=== PATIENT | male | born 1945 | race Caucasian/White ===

== ENCOUNTER → 2020-07-09 08:14 | Outpatient (BNVA) | payer MEDICARE, SELFPAY | PROVIDERS: PCP Nurse Practitioner Family; Referring Provider Nurse Practitioner Family; Visit Provider Internal Medicine | DX: R06.02 Shortness of breath (principal); I35.9 Nonrheumatic aortic valve disorder, unspecified; J44.9 Chronic obstructive pulmonary disease, unspecified; Z87.891 Personal history of nicotine dependence | CPT/HCPCS: 99214 ==

== ENCOUNTER 2020-07-23 08:10 | Outpatient (REF) | payer MEDICARE, SELFPAY ==
[2020-07-23 11:57] LABS: Anion Gap 14 (12-20); Blood Urea Nitrogen 9 mg/dL (9-16); Calcium 8.8 mg/dL (8.4-10.2); Carbon Dioxide 27 mmol/L (22-29); Chloride 103 mmol/L (96-108); Cholesterol 175 mg/dL; Estimated Glomerular Filt Rate > 60; Glucose Fasting 90 mg/dL (60-99); HDL Cholesterol 76 mg/dL; LDL Cholesterol Calculated 83 mg/dl; Potassium 4.3 mmol/l (3.3-5.1); Sodium 140 mmol/L (135-145); Triglycerides 82 mg/dL
[2020-07-23 12:36] LABS: Prostate Specific Antigen Scr 9.17 ng/mL (<0.05-4.0); TSH reflex Free T4 1.38 mIU/mL (0.32-4.0)
== END 2020-07-23 08:11 | disposition home or self-care (01) ==
LOC: HO.HMGCLDS 08:10
PROVIDERS: PCP Nurse Practitioner Family; Visit Provider Nurse Practitioner Family
DX: R06.02 Shortness of breath (principal); E78.5 Hyperlipidemia, unspecified
CPT/HCPCS: 80048; 80061; 84153; 84443

== ENCOUNTER → 2020-09-15 13:29 | Outpatient (BNVA) | payer MEDICARE, SELFPAY | PROVIDERS: Visit Provider Urology | DX: R97.20 Elevated prostate specific antigen [PSA] (principal); N40.1 Benign prostatic hyperplasia with lower urinary tract symptoms; Z12.5 Encounter for screening for malignant neoplasm of prostate | CPT/HCPCS: 99202 ==

== ENCOUNTER 2020-10-14 11:22 | Outpatient (REF) | payer MEDICARE, SELFPAY ==
--- NOTE | 2020-10-14 11:24 | US_ITS ---
EXAMINATION: US PELVIS LIMITED (BLADDER) CLINICAL INFORMATION: Poor urinary stream. COMPARISON: None TECHNIQUE: Real-time imaging of the bladder. FINDINGS: BLADDER: The bladder wall is slightly thickened measuring 6 mm. No stone or mass is seen. There is a echogenic debris seen dependently in the bladder. Bilateral ureteral jets are demonstrated. Prevoid bladder volume is 316 mL. Postvoid bladder volume is 22 mL. The prostate gland is normal in size measuring 2.8 x 3.5 x 3.6 cm, volume 19 mL. US/US bladder IMPRESSION: Mild diffuse bladder wall thickening and echogenic debris seen in the bladder. Postvoid bladder residual is small measuring 22 mL. The prostate gland does not appear enlarged..
== END 2020-10-14 11:23 | disposition home or self-care (01) ==
LOC: HO.HMGCX 11:22
PROVIDERS: PCP Nurse Practitioner Family; Visit Provider Urology
DX: R39.12 Poor urinary stream (principal); R97.20 Elevated prostate specific antigen [PSA]
CPT/HCPCS: 76857

== ENCOUNTER → 2020-10-21 08:57 | Outpatient (BNVA) | payer MEDICARE, SELFPAY | PROVIDERS: Visit Provider Urology | DX: N40.1 Benign prostatic hyperplasia with lower urinary tract symptoms (principal); N13.8 Other obstructive and reflux uropathy; R97.20 Elevated prostate specific antigen [PSA] | CPT/HCPCS: Q3014 ==

== ENCOUNTER 2021-05-28 13:13 | Outpatient (REF) | payer MEDICARE, SELFPAY ==
[2021-05-28 15:11] LABS: PSA,Total (Free>4and<10) 7.24 ng/mL (0.00-4.00)
[2021-06-06 10:01] LABS: Free Prostate Spec Ag 0.3 ng/mL; Percent Free Prostate Spec Ag 5 % (calc) (>25); Prostate Specific Ag Total 6.3 ng/mL (< OR = 4.0)
== END 2021-05-28 13:14 | disposition home or self-care (01) ==
LOC: HO.HMGCLDS 13:13
PROVIDERS: PCP Nurse Practitioner Family; Visit Provider Urology
DX: Z12.5 Encounter for screening for malignant neoplasm of prostate (principal); N40.1 Benign prostatic hyperplasia with lower urinary tract symptoms; N13.8 Other obstructive and reflux uropathy
CPT/HCPCS: 36415; 84153; 84154

== ENCOUNTER → 2021-06-04 14:15 | Outpatient (BNVA) | payer MEDICARE, SELFPAY | PROVIDERS: Visit Provider Urology | DX: N40.1 Benign prostatic hyperplasia with lower urinary tract symptoms (principal); N13.8 Other obstructive and reflux uropathy; R97.20 Elevated prostate specific antigen [PSA] | CPT/HCPCS: Q3014 ==

== ENCOUNTER → 2021-06-30 09:38 | Outpatient (BNVA) | payer MEDICARE, SELFPAY | PROVIDERS: Referring Provider Nurse Practitioner Family; Visit Provider Internal Medicine | DX: J44.9 Chronic obstructive pulmonary disease, unspecified (principal); I35.9 Nonrheumatic aortic valve disorder, unspecified; R06.02 Shortness of breath; Z87.891 Personal history of nicotine dependence | CPT/HCPCS: 93005; 99212 ==

== ENCOUNTER 2021-11-30 14:24 | Outpatient (REF) | payer OTHER, SELFPAY ==
[2021-11-30 17:13] LABS: PSA,Total (Free>4and<10) 5.69 ng/mL (0.00-4.00)
== END 2021-11-30 14:25 | disposition home or self-care (01) ==
LOC: HO.HMGCLDS 14:24
PROVIDERS: Visit Provider Urology
DX: Z12.5 Encounter for screening for malignant neoplasm of prostate (principal); R97.20 Elevated prostate specific antigen [PSA]; N40.1 Benign prostatic hyperplasia with lower urinary tract symptoms; N13.8 Other obstructive and reflux uropathy
CPT/HCPCS: 36415; 84153; 84154

== ENCOUNTER → 2021-12-03 08:48 | Outpatient (BNVA) | payer MEDICARE, SELFPAY | PROVIDERS: Visit Provider Urology | DX: N40.1 Benign prostatic hyperplasia with lower urinary tract symptoms (principal); N13.8 Other obstructive and reflux uropathy; R97.20 Elevated prostate specific antigen [PSA] | CPT/HCPCS: Q3014 ==

== ENCOUNTER 2022-05-23 08:25 | Outpatient (REF) | payer OTHER, SELFPAY ==
[2022-05-23 11:24] LABS: MANUAL DIFF FLAG NO
[2022-05-23 11:27] LABS: Appearance Urine Clear; Color Urine Yellow; Glucose Urine UA Negative (Negative); Leukocyte Esterase Urine Negative (Negative); Nitrite Urine Negative (Negative); Specific Gravity - Urine 1.015 (1.005-1.025); Urine Blood Negative (Negative); Urine Ketones Negative (Negative); Urine Protein Negative (Neg-Trace)
[2022-05-23 11:40] LABS: Basophils Percent Auto 0.5 % (0-2); Eosinophils Absolute Auto 0.3 X10*3/uL (0.0-0.4); Eosinophils Percent Auto 4.4 % (0-4); Hematocrit 44.7 % (42.0-52.0); Hemoglobin 15.1 g/dl (14.0-18.0); Imm Gran Abs Auto 0.02 X10*3/uL (0.00-0.03); Imm Gran Pct Auto 0.3 % (0.0-0.4); Lymphocytes Absolute Auto 2.9 X10*3/uL (1.2-4.9); Lymphocytes Percent Auto 49.5 % (20-40); Mean Corpuscular HGB Conc 33.8 g/dl (31.0-36.0); Mean Corpuscular Volume 97.8 fL (80.0-98.0); Mean Platelet Volume 11.2 fL (9.4-12.4); Monocytes Absolute Auto 0.6 X10*3/uL (0.1-1.2); Monocytes Percent Auto 10.3 % (2-11); Neutrophils Absolute Auto 2.1 x10*3/uL (2.0-8.3); Platelet Count 162 X10*3/uL (160-400); Red Blood Count 4.57 X10*6/uL (4.60-5.80); Red Cell Distribution Width 12.6 % (11.0-16.0); White Blood Count 5.9 X10*3/uL (4.8-10.8)
[2022-05-23 12:06] LABS: Alanine Aminotransferase 19 U/L (0-40); Albumin Level 4.2 g/dL (3.5-5.0); Alkaline Phosphatase 58 U/L (39-117); Anion Gap 15 (12-20); Aspartate Amino Transferase 27 U/L (5-37); Bilirubin Total 1.3 mg/dL (0.0-1.0); Blood Urea Nitrogen 10 mg/dL (9-16); Calcium 9.2 mg/dL (8.4-10.2); Carbon Dioxide 28 mmol/L (22-29); Chloride 103 mmol/L (96-108); Cholesterol 172 mg/dL; Estimated Glomerular Filt Rate > 60; Glucose Fasting 108 mg/dL (60-99); HDL Cholesterol 78 mg/dL; LDL Cholesterol Calculated 84 mg/dl; Potassium 4.9 mmol/L (3.3-5.1); Sodium 141 mmol/L (135-145); Total Protein 6.9 g/dL (6.5-8.0); Triglycerides 54 mg/dL
[2022-05-23 12:22] LABS: PSA,Total (Free>4and<10) 8.62 ng/mL (0.00-4.00); Vitamin D 25-OH Total 17.1 ng/mL (>30)
[2022-05-23 12:39] LABS: PSA,Total (Free>4and<10) 7.98 ng/mL (0.00-4.00)
[2022-05-25 08:41] LABS: Free Prostate Spec Ag 0.6 ng/mL; Percent Free Prostate Spec Ag 7 % (calc) (>25); Prostate Specific Ag Total 8.1 ng/mL (< OR = 4.0)
== END 2022-05-23 08:26 | disposition home or self-care (01) ==
LOC: HO.HMGCLDS 08:25
PROVIDERS: Absent Provider Urology; PCP Internal Medicine; Visit Provider Internal Medicine
DX: Z12.5 Encounter for screening for malignant neoplasm of prostate (principal); E78.00 Pure hypercholesterolemia, unspecified; E55.9 Vitamin D deficiency, unspecified; N13.8 Other obstructive and reflux uropathy; N40.1 Benign prostatic hyperplasia with lower urinary tract symptoms; I10 Essential (primary) hypertension
CPT/HCPCS: 36415; 80053; 80061; 81003; 82306; 84153; 84154; 84443; 85025

== ENCOUNTER → 2022-06-30 09:01 | Outpatient (BNVA) | payer OTHER, SELFPAY | PROVIDERS: PCP Internal Medicine; Referring Provider Internal Medicine; Visit Provider Internal Medicine | DX: R06.02 Shortness of breath (principal); I35.9 Nonrheumatic aortic valve disorder, unspecified; R03.0 Elevated blood-pressure reading, without diagnosis of hypertension; J44.9 Chronic obstructive pulmonary disease, unspecified; Z87.891 Personal history of nicotine dependence | CPT/HCPCS: 93005 ==

== ENCOUNTER 2022-11-29 09:05 | Outpatient (REF) | payer OTHER, SELFPAY ==
[2022-11-29 12:34] LABS: PSA,Total (Free>4and<10) 4.49 ng/mL (0.00-4.00)
[2022-12-01 13:13] LABS: Free Prostate Spec Ag 0.3 ng/mL; Percent Free Prostate Spec Ag 6 % (calc) (>25); Prostate Specific Ag Total 4.8 ng/mL (< OR = 4.0)
== END 2022-11-29 09:06 | disposition home or self-care (01) ==
LOC: HO.HMGCLDS 09:05
PROVIDERS: PCP Internal Medicine; Visit Provider Urology
DX: Z12.5 Encounter for screening for malignant neoplasm of prostate (principal); N13.8 Other obstructive and reflux uropathy; N40.1 Benign prostatic hyperplasia with lower urinary tract symptoms
CPT/HCPCS: 36415; 84153; 84154

== ENCOUNTER → 2023-02-22 08:45 | Outpatient (BNVA) | payer OTHER, SELFPAY | PROVIDERS: PCP Internal Medicine; Visit Provider Urology | DX: N40.1 Benign prostatic hyperplasia with lower urinary tract symptoms (principal); N13.8 Other obstructive and reflux uropathy; R97.20 Elevated prostate specific antigen [PSA] | CPT/HCPCS: 51798 ==

== ENCOUNTER 2023-05-08 09:00 | Outpatient (AMB) | payer OTHER, SELFPAY ==
[2023-05-08 09:02] VITALS: BP 128/82; PULSE 54; O2SAT 96; BMI 24.3
--- NOTE | 2023-05-08 09:02 | A.OFFPC_ITS ---
Vital Signs 05/08/23 09:02 Height 5 ft 8 in Weight 160 lb BMI 24.3 BP 128/82 Blood Pressure Location Lt brachial Position Sitting Pulse 54 Pulse Source Pulse Oximeter Pulse Oximetry (%) 96 Oxygen Delivery Method Room Air Intake Visit Reasons: hyperlipidemia, elevated BP, vitamin D deficiency Butcher Or Smallgoods Maker Required: No Accompanied by: Self / Same As Patient Allergies No Known Allergies [No Known Allergies*] Allergy (Verified 05/08/23 09:11) Medication List - Last Reconciled 05/08/23 by Alan Osman MD atorvastatin 40 mg PO BEDTIME 90 days cholecalciferol (vitamin D3) 50 mcg PO DAILY 90 days finasteride 5 mg PO DAILY 90 days Tobacco use date assessed: 05/08/23 Fall risk assessment: No Falls in past year Last assessed Fall Risk: 05/08/23 Dental Screening Dental Screen Date: 05/08/23 Did you have a dental visit in the last 12 months?: No Did you have a dental problem in the last 6 months where you did not have access to dental care?: No Was dental information given to patient?: No HPI hyperlipidemia, elevated BP, vitamin D deficiency HPI Details Patient comes in today for his follow up visit States that he feels okay He denies any headaches or dizziness Denies any chest pains, no increased SOB No nausea/vomiting, no abdominal pain No change in bowel habits noted Was not able to get his follow up labs done prior to his visit today COUNT INCLUDES THE [facility] Medical History Aortic valve calcification (atherosclerosis) Carotid bruit Chronic obstructive pulmonary disease, unspecified Colonoscopy refused Dyslipidemia Heart murmur Hemochromatosis carrier History of smoking Mass in neck Shortness of breath on exertion Tobacco use disorder Vitamin D deficiency Surgical History Hx of tonsillectomy Mass in neck Family History Father History of emphysema Mother HTN (hypertension) Brother No problems noted. Brother No problems noted. Sister No problems noted. Sister No problems noted. Daughter No problems noted. Social History Housing: House Alcohol intake: current Alcohol intake frequency: 3 or more drinks per day Patient Tobacco Use Status: Former Tobacco user Quit Date: 2011 Years Smoked: 20 +/- e-Cigarette/Vaping Use: Never Used Second Hand Smoke Exposure: Yes Current occupational status: retired Cognitive needs: No Hearing needs: No Vision needs: Yes (reading glasses) Questionnaire PHQ-9 Over the last 2 weeks, how often have you been bothered by any of the following problems? 1. Little interest or pleasure in doing things: not at all 2. Feeling down, depressed, or hopeless: not at all 3. Trouble falling or staying asleep, or sleeping too much: not at all 4. Feeling tired or having little energy: not at all 5. Poor appetite or overeating: not at all 6. Feeling bad about yourself - or that you are a failure or have let yourself or your family down: not at all 7. Trouble concentrating on things, such as reading the newspaper or watching television: not at all 8. Moving or speaking so slowly that other people could have noticed. Or the opposite - being so fidgety or restless that you have been moving around a lot more than usual: not at all 9. Thoughts that you would be better off or of hurting yourself in some way: not at all Total score: 0 Depression Screening Interpretation: Negative [id number] - PHQ-9 Billing: Yes Source: Developed by Drs. Rogelio Salomon, Sarah Saba, Raghu Guevara and colleagues, with an educational john from [employer]. Thrive Questionnaire Date Thrive assessed: 05/08/23 I am a: Patient What is your living situation today?: I have a steady place to live Within the past 12 months, did the food you bought not last and you didn't have the money to get more?: Never true Within the past 12 months, did you worry whether your food would run out before you got money to buy more?: Never true Do you have trouble paying for medicines?: No Do you have trouble getting transportation to medical appointments?: No Do you have trouble paying your heating and electricity bill?: No Do you have trouble taking care of your child, family member or friend?: No Do you have trouble with day-to-day activities such as bathing, preparing meals, shopping, managing finances, etc.?: No Are you currently unemployed and looking for a job?: No Are you interested in more education?: No Please select the resources that you would like help with: None Currently or been in a relationship where the following occur: no concerns reported AUDIT C Alcohol Use Questionnaire (AUDIT-C) 1. How often do you have a drink containing alcohol?: Never 3. How often do you have six or more drinks on one occasion?: Never Total Score: 0 Score Reviewed/Action Taken: Yes LEELEE-7 AMB Questionnaire LEELEE-7 Date LEELEE - 7 assessed: 05/08/23 Feeling nervous, anxious, or on edge: 0 = Not at all Not being able to stop or control worryin = Not at all Worrying too much about different things: 0 = Not at all Trouble relaxin = Not at all Being so restless that it is hard to sit still: 0 = Not at all Becoming easily annoyed or irritable: 0 = Not at all Feeling afraid as if something awful might happen: 0 = Not at all Total LEELEE-7 score (0-4 normal; 5-9 mild; 10-14 moderate; 15-21 severe): 0 Source: Developed by Drs. Rogelio Salomon, Sarah Saba, Raghu Guevara and colleagues, with an educational john from [employer]. Review of Systems Const Denies chills, Denies fatigue, Denies fever(s) and Denies headache(s) ENT Denies dysphagia, Denies dizziness, Denies otalgia, Denies headache(s) and Denies sore throat Card Denies chest pain, Denies rapid heart rate, Denies palpitations and Reports dyspnea on exertion (occasionally, mostly mild) Resp Denies chest congestion, Denies cough, Reports dyspnea on exertion (occasionally, mostly mild) and Denies wheezing GI Denies abdominal pain, Denies constipation, Denies dysphagia, Denies heartburn, Denies diarrhea, Denies nausea and Denies vomiting Denies dysuria and Denies nocturia Neuro Denies dizziness and Denies headache(s) Endo Denies fatigue and Denies palpitations Aller/Immun Denies wheezing Physical exam (Primary Care) Vital Signs: Last Vital Signs Pulse 54 05/08/23 09:02 BP 128/82 05/08/23 09:02 Pulse Ox 96 05/08/23 09:02 Oxygen Delivery Method Room Air 05/08/23 09:02 BMI result Body Mass Index 24.3 Tobacco/Smoking Status: Tobacco use Status Tobacco use date assessed 05/08/23 05/08/23 09:06 Patient Tobacco Use Status Former Tobacco user 05/08/23 09:06 e-Cigarette/Vaping Use Never Used 05/08/23 09:06 PHQ-9: PHQ-9 Score PHQ-9: Total score 0 05/08/23 09:06 Depression Screening Interpretation: Negative Thrive Assessment: Date of Thrive Assessment Date Thrive assessed 05/08/23 05/08/23 09:06 Currently or been in a relationship where the following occur: no concerns reported Const General: no acute distress and alert HENMT Ears: TM's normal bilaterally and EAC's normal Throat: Yes posterior oropharynx normal and Yes tonsils normal (no TP congestion) Neck Neck: Yes no lymphadenopathy and Yes supple Resp Auscultation: clear to auscultation bilaterally, no rales and no wheezes Cardio Rate: regular rate Rhythm: regular rhythm Heart sounds: no murmurs GI Palpation (GI): Soft to palpation and nontender Auscultation: normal bowel sounds Skin General skin exam: no rashes or lesions noted Extrem General: Yes no clubbing, cyanosis or edema Assessment and Plan Assessment & Plan (1) Pure hypercholesterolemia: Code(s): E78.00 - Pure hypercholesterolemia, unspecified Plan: Was not able to get his follow up labs done - states that he will go and get them done SOLIS Patient is advised that we will check back with him IF any of his follow up labs come back with unexpected results Reinforced low cholesterol diet Continue Atorvastatin 40 mg QD (2) Elevated blood pressure reading: Code(s): R03.0 - Elevated blood-pressure reading, without diagnosis of hypertension Plan: Reinforced low sodium diet Patient's BP today is much better compared to that from his previous visit Have advised patient to continue monitoring his blood pressure regularly (3) Chronic obstructive pulmonary disease, unspecified: Code(s): J44.9 - Chronic obstructive pulmonary disease, unspecified Qualifiers: COPD type: unspecified COPD Qualified Code(s): J44.9 - Chronic obstructive pulmonary disease, unspecified Plan: Patient is an ex-smoker and chest x-rays done in the past have showed (+) emphysematous 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 Heck) as scheduled Plan Follow up in 6 months Coding Level of Care Code Est Pt Level 4 (89158) Diagnoses Pure hypercholesterolemia E78.00 Elevated blood pressure reading R03.0 Chronic obstructive pulmonary disease, unspecified J44.9 COPD type: unspecified COPD Vitamin D deficiency E55.9 BPH w urinary obs/LUTS N40.1; N13.8
== END 2023-05-08 09:23 | disposition home or self-care (01) ==
PROVIDERS: PCP Internal Medicine; Visit Provider Internal Medicine
DX: E78.00 Pure hypercholesterolemia, unspecified (principal); R03.0 Elevated blood-pressure reading, without diagnosis of hypertension; J44.9 Chronic obstructive pulmonary disease, unspecified; E55.9 Vitamin D deficiency, unspecified; N40.1 Benign prostatic hyperplasia with lower urinary tract symptoms; N13.8 Other obstructive and reflux uropathy
CPT/HCPCS: 99214

== ENCOUNTER 2023-05-09 09:31 | Outpatient (REF) | payer OTHER, SELFPAY ==
[2023-05-09 13:31] LABS: MANUAL DIFF FLAG NO
[2023-05-09 13:51] LABS: Appearance Urine Clear; Color Urine Yellow; Glucose Urine UA Negative (Negative); Leukocyte Esterase Urine Negative (Negative); Nitrite Urine Negative (Negative); Urine Blood Negative (Negative); Urine Ketones Negative (Negative); Urine Protein Negative (Neg-Trace)
[2023-05-09 13:57] LABS: Basophils Percent Auto 0.3 % (0-2); Eosinophils Absolute Auto 0.1 X10*3/uL (0.0-0.4); Eosinophils Percent Auto 1.7 % (0-4); Hematocrit 45.4 % (42.0-52.0); Hemoglobin 14.8 g/dl (14.0-18.0); Imm Gran Abs Auto 0.01 X10*3/uL (0.00-0.03); Imm Gran Pct Auto 0.2 % (0.0-0.4); Lymphocytes Absolute Auto 2.2 X10*3/uL (1.2-4.9); Lymphocytes Percent Auto 36.8 % (20-40); Mean Corpuscular HGB Conc 32.6 g/dl (31.0-36.0); Mean Corpuscular Hemoglobin 32.3 pg (27.0-33.0); Mean Corpuscular Volume 99.1 fL (80.0-98.0); Mean Platelet Volume 11.2 fL (9.4-12.4); Monocytes Absolute Auto 0.6 X10*3/uL (0.1-1.2); Monocytes Percent Auto 10.8 % (2-11); Neutrophils Percent Auto 50.2 % (45-73); Platelet Count 177 X10*3/uL (160-400); Red Blood Count 4.58 X10*6/uL (4.60-5.80); Red Cell Distribution Width 12.6 % (11.0-16.0); White Blood Count 5.9 X10*3/uL (4.8-10.8)
[2023-05-09 14:21] LABS: Alanine Aminotransferase 19 U/L (0-40); Albumin Level 4.1 g/dL (3.5-5.0); Alkaline Phosphatase 47 U/L (39-117); Anion Gap 10 (12-20); Aspartate Amino Transferase 24 U/L (5-37); Bilirubin Total 1.3 mg/dL (0.0-1.0); Blood Urea Nitrogen 10 mg/dL (9-16); Calcium 9.4 mg/dL (8.4-10.2); Carbon Dioxide 29 mmol/L (22-29); Chloride 103 mmol/L (96-108); Cholesterol 157 mg/dL; Estimated Glomerular Filt Rate > 60; Glucose Fasting 105 mg/dL (60-99); HDL Cholesterol 70 mg/dL; LDL Cholesterol Calculated 78 mg/dl; Potassium 4.3 mmol/L (3.3-5.1); Sodium 138 mmol/L (135-145); TSH reflex Free T4 1.25 uIU/mL (0.32-4.0); Total Protein 6.9 g/dL (6.5-8.0); Triglycerides 47 mg/dL; Vitamin D 25-OH Total 79.7 ng/mL (>30)
== END 2023-05-09 09:32 | disposition home or self-care (01) ==
LOC: HO.HMGCLDS 09:31
PROVIDERS: PCP Internal Medicine; Visit Provider Internal Medicine
DX: R30.0 Dysuria (principal); E55.9 Vitamin D deficiency, unspecified; E78.00 Pure hypercholesterolemia, unspecified; I10 Essential (primary) hypertension
CPT/HCPCS: 36415; 80053; 80061; 81003; 82306; 84443; 85025

== ENCOUNTER 2023-08-22 08:33 | Outpatient (REF) | payer OTHER, SELFPAY ==
[2023-08-22 11:57] LABS: PSA,Total (Free>4and<10) 5.11 ng/mL (0.00-4.00)
[2023-08-23 10:29] LABS: Free Prostate Spec Ag 0.3 ng/mL; Percent Free Prostate Spec Ag 7 % (calc) (>25); Prostate Specific Ag Total 4.6 ng/mL (< OR = 4.0)
== END 2023-08-22 08:34 | disposition home or self-care (01) ==
LOC: HO.HMGCLDS 08:33
PROVIDERS: PCP Internal Medicine; Visit Provider Urology
DX: Z12.5 Encounter for screening for malignant neoplasm of prostate (principal); R97.20 Elevated prostate specific antigen [PSA]
CPT/HCPCS: 36415; 84153; 84154

== ENCOUNTER 2023-08-24 09:07 | Outpatient (AMB) | payer OTHER, SELFPAY ==
--- NOTE | 2023-08-24 09:13 | A.OFFVIS_ITS ---
Intake Intake Visit Reasons: 6m/PSA(set) Intake Note: Patient is Present for Follow Up Urology Medication: Finasteride Antibiotic Allergies: None Blood Thinners: None PVR: 0 Allergies No Known Allergies [No Known Allergies*] Allergy (Verified 05/08/23 09:11) Medication List - Last Reconciled 08/24/23 by Ishan Heck MD atorvastatin 40 mg PO BEDTIME 90 days cholecalciferol (vitamin D3) 50 mcg PO DAILY 90 days finasteride 5 mg PO DAILY 90 days HPI HPI Comments History of Present Illness Details Víctor Jaramillo is a very pleasant male. He is a patient of Dr Marcus. He seen for the following urologic conditions - elevated PSA - Lower urinary tract symptoms Small prostate Low free% increases risk for prostate cancer - PCPT calculator 80% chance of prostate cancer JESSICA small no nodules Prior Recommend prostate biopsy Six month follow-up PSA Will try to obtain prostate MRI given risk PVR 0 Elevated PSA Taken finasteride He presents for - further evaluation of elevated PSA Current management is - finasteride Laboratory investigations include - - a total PSA evaluation - June 2018 13.0, June 2019 7.4, 07/14 9.2, 06/15 7.2, 11/16 5.7, 05/16 8.0 off finasteride, 12/15 4.8 6%, 08/17 4.6 7% Imaging investigations include - Individualized Prostate Cancer Risk Calculator - 10% risk. Discussed repeat PSA. - minimal symptoms Imaging 09/13 bladder ultrasound. PVR 22 cc, prostate 25 g Overall symptoms are mild Therapeutic plan will be -repeat PSA PFSH Medical History Aortic valve calcification (atherosclerosis) Carotid bruit Chronic obstructive pulmonary disease, unspecified Colonoscopy refused Dyslipidemia Heart murmur Hemochromatosis carrier History of smoking Mass in neck Shortness of breath on exertion Tobacco use disorder Vitamin D deficiency Surgical History Hx of tonsillectomy Mass in neck Family History Father History of emphysema Mother HTN (hypertension) Brother No problems noted. Brother No problems noted. Sister No problems noted. Sister No problems noted. Daughter No problems noted. Social History Housing: House Alcohol intake: current Alcohol intake frequency: 3 or more drinks per day Patient Tobacco Use Status: Former Tobacco user Quit Date: 2011 Years Smoked: 20 +/- e-Cigarette/Vaping Use: Never Used Second Hand Smoke Exposure: Yes Current occupational status: retired Cognitive needs: No Hearing needs: No Vision needs: Yes (reading glasses) Review of Systems Const Denies chills and Denies fever(s) Card Reports no additional complaints and Denies syncope Resp Denies cough GI Denies abdominal pain and Denies heartburn Reports as per HPI and Denies change in libido Neuro Denies syncope Psych Denies change in libido Endo Denies change in libido Physical Exam Const General: cooperative, healthy appearing, comfortable and no acute distress Orientation/consciousness: patient oriented x3 HEENT Face and sinus: Yes normal facial exam Mouth: moist mucous membranes Neck Neck: Yes normal visual inspection, Yes full ROM and Yes trachea midline Chest Chest palpation & inspection: normal inspection of the chest Resp Effort & Inspection: normal respiratory effort, able to speak in complete sentences and no respiratory distress GI Inspection: Yes normal to inspection Back/Spine/Pelvis Cervical Spine: normal cervical lordosis Thoracic/Lumbar Spine: thoracic and lumbar spine normal to inspection Skin General skin exam: no rashes or lesions noted Neuro General: patient oriented x3, gait normal, tone normal and moves all extremities Extrem General: Yes normal to inspection and Yes capillary refill normal Office Procedures Post Void Residual Post Residual Void Post Void Residual (PVR): 0 [id number] Void Residual by ultrasound Assessment & Plan Assessment & Plan (1) BPH w urinary obs/LUTS: Code(s): N40.1 - Benign prostatic hyperplasia with lower urinary tract symptoms; N13.8 - Other obstructive and reflux uropathy (2) Elevated PSA: Code(s): R97.20 - Elevated prostate specific antigen [PSA] Plan Six month follow-up prostate MRI and lab work Orders: Orders AMB Post Void Residual by ultrasound Today N13.8 - Other obstructive and reflux uropathy, N40.1 - Benign prostatic hyperplasia with lower urinary tract symptoms Prostate Specific Antigen 6 Months R97.20 - Elevated prostate specific antigen [PSA] Creatinine 6 Months R97.20 - Elevated prostate specific antigen [PSA] Blood Urea Nitrogen 6 Months R97.20 - Elevated prostate specific antigen [PSA] Prostate Specific Antigen 08/22/23 R97.20 - Elevated prostate specific antigen [PSA] MR pelvis wo/w con 6 Months R97.20 - Elevated prostate specific antigen [PSA] Medications: Refilled finasteride 5 mg PO DAILY 90 tabs 3RF 90 days N13.8 - Other obstructive and reflux uropathy, N40.1 - Benign prostatic hyperplasia with lower urinary tract symptoms Patient Instructions: Imaging studies, laboratory and physical exam results were discussed and reviewed in detail. No major barriers to patient understanding were identified. An opportunity to ask questions regarding the treatment plan was provided. All questions were answered. The patient expressed understanding and agreement with the above treatment plan. The patient is aware they should contact our office by phone for worsening of their current condition or the appearance of new urologic symptoms. Compliance is encouraged with any medications and followup testing that is ordered. It is a privilege to participate in the urologic care of your patient. If you have any questions or concerns regarding treatment for the above conditions, or other urologic issues, please do not hesitate to contact me. The office telephone contact is [phone]. This note is constructed using voice recognition software. While every effort has been made to ensure accuracy fractionation plant supervisor errors may have been included. Yours sincerely, Dr Ishan Heck MD, [facility] - Urology Providers of Expert, Compassionate Care for the Genitourinary System Coding Level of Care Code Est Pt Level 3 (37717) Diagnoses BPH w urinary obs/LUTS N40.1; N13.8 Elevated PSA R97.20 CPT Codes Post Residual Void - PVR CPT Code: [id number]-[id number] Void Residual by ultrasound ([id number])
== END 2023-08-24 09:41 | disposition home or self-care (01) ==
PROVIDERS: Visit Provider Urology
DX: N40.1 Benign prostatic hyperplasia with lower urinary tract symptoms (principal); N13.8 Other obstructive and reflux uropathy; R97.20 Elevated prostate specific antigen [PSA]
CPT/HCPCS: 99213

== ENCOUNTER → 2023-08-24 09:07 | Outpatient (BNVA) | payer OTHER, SELFPAY | PROVIDERS: Visit Provider Urology | DX: N40.1 Benign prostatic hyperplasia with lower urinary tract symptoms (principal); N13.8 Other obstructive and reflux uropathy; R97.20 Elevated prostate specific antigen [PSA] | CPT/HCPCS: 51798 ==

== ENCOUNTER 2023-11-01 08:45 | Outpatient (AMB) | payer OTHER, SELFPAY ==
[2023-11-01 08:47] VITALS: BP 138/80; PULSE 68; O2SAT 97; BMI 24.6
--- NOTE | 2023-11-01 08:47 | A.OFFPC_ITS ---
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 Accompanied by: Self / Same As Patient Allergies No Known Allergies [No Known Allergies*] Allergy (Verified 11/01/23 09:12) Medication List - Last Reconciled 11/01/23 by Alan Osman MD atorvastatin 40 mg PO BEDTIME 90 days cholecalciferol (vitamin D3) 50 mcg PO DAILY 90 days finasteride 5 mg PO DAILY 90 days Tobacco use date assessed: 11/01/23 Fall risk assessment: No Falls in past year Last assessed Fall Risk: 11/01/23 Dental Screening Dental Screen Date: 11/01/23 Did you have a dental visit in the last 12 months?: No Did you have a dental problem in the last 6 months where you did not have access to dental care?: No Was dental information given to patient?: No HPI hyperlipidemia, BPH HPI Details Patient comes in today for his follow up visit States that he feels okay He denies any headaches or dizziness Denies any chest pains, no increased SOB No nausea/vomiting, no abdominal pain No change in bowel habits noted Would like to know how he really did on his labs done back in April 2023 right after his last visit [facility] Medical History (Updated 11/01/23 @ 09:34 by Alan Osman MD) Heart murmur Vitamin D deficiency Dyslipidemia (atherosclerosis) Colonoscopy refused Tobacco use disorder Hemochromatosis carrier Mass in neck Carotid bruit History of smoking Aortic valve calcification Chronic obstructive pulmonary disease, unspecified Shortness of breath on exertion Surgical History Mass in neck Hx of tonsillectomy Family History Father History of emphysema Mother HTN (hypertension) Brother No problems noted. Brother No problems noted. Sister No problems noted. Sister No problems noted. Daughter No problems noted. Social History Housing: House Alcohol intake: current Alcohol intake frequency: 3 or more drinks per day Patient Tobacco Use Status: Former Tobacco user Quit Date: 2011 Years Smoked: 20 +/- e-Cigarette/Vaping Use: Never Used Second Hand Smoke Exposure: Yes service: No Current occupational status: retired Cognitive needs: No Hearing needs: No Vision needs: Yes (reading glasses) Questionnaire PHQ-9 Over the last 2 weeks, how often have you been bothered by any of the following problems? 1. Little interest or pleasure in doing things: not at all 2. Feeling down, depressed, or hopeless: not at all 3. Trouble falling or staying asleep, or sleeping too much: not at all 4. Feeling tired or having little energy: not at all 5. Poor appetite or overeating: not at all 6. Feeling bad about yourself - or that you are a failure or have let yourself or your family down: not at all 7. Trouble concentrating on things, such as reading the newspaper or watching television: not at all 8. Moving or speaking so slowly that other people could have noticed. Or the opposite - being so fidgety or restless that you have been moving around a lot more than usual: not at all 9. Thoughts that you would be better off or of hurting yourself in some way: not at all Total score: 0 Depression Screening Interpretation: Negative Depression Screening Done: Yes 45342 - PHQ-9 Billing: Yes Source: Developed by Drs. Rogelio Salomon, Sarah Saba, Raghu Guevara and colleagues, with an educational john from [employer]. Thrive Questionnaire Date Thrive assessed: 11/01/23 I am a: Patient What is your living situation today?: I have a steady place to live Within the past 12 months, did the food you bought not last and you didn't have the money to get more?: Never true Within the past 12 months, did you worry whether your food would run out before you got money to buy more?: Never true Do you have trouble paying for medicines?: No Do you have trouble getting transportation to medical appointments?: No Do you have trouble paying your heating and electricity bill?: No Do you have trouble taking care of your child, family member or friend?: No Do you have trouble with day-to-day activities such as bathing, preparing meals, shopping, managing finances, etc.?: No Are you currently unemployed and looking for a job?: No Are you interested in more education?: No Please select the resources that you would like help with: None Currently or been in a relationship where the following occur: no concerns reported THRIVE Score: 0 AUDIT C Alcohol Use Questionnaire (AUDIT-C) 1. How often do you have a drink containing alcohol?: Never 3. How often do you have six or more drinks on one occasion?: Never Total Score: 0 Score Reviewed/Action Taken: Yes LEELEE-7 AMB Questionnaire LEELEE-7 Date LEELEE - 7 assessed: 11/01/23 Feeling nervous, anxious, or on edge: 0 = Not at all Not being able to stop or control worryin = Not at all Worrying too much about different things: 0 = Not at all Trouble relaxin = Not at all Being so restless that it is hard to sit still: 0 = Not at all Becoming easily annoyed or irritable: 0 = Not at all Feeling afraid as if something awful might happen: 0 = Not at all Total LEELEE-7 score (0-4 normal; 5-9 mild; 10-14 moderate; 15-21 severe): 0 Source: Developed by Drs. Rogelio Salomon, Sarah Saba, Raghu Guevara and colleagues, with an educational john from [employer]. Review of Systems Const Denies chills, Denies fatigue, Denies fever(s) and Denies headache(s) ENT Denies dysphagia, Denies dizziness, Denies otalgia, Denies headache(s), Denies neck pain, Denies odynophagia and Denies sore throat Card Denies chest pain, Denies palpitations and Denies dyspnea Resp Denies cough and Denies dyspnea GI Denies abdominal pain, Denies constipation, Denies dysphagia, Denies heartburn, Denies diarrhea, Denies nausea, Denies odynophagia and Denies vomiting Denies dysuria, Denies nocturia and Denies urinary frequency Musc Denies back pain and Denies neck pain Skin/Breast Denies rash Neuro Denies dizziness and Denies headache(s) Endo Denies fatigue and Denies palpitations Physical exam (Primary Care) Vital Signs: Last Vital Signs Pulse 68 11/01/23 08:47 BP 138/80 11/01/23 08:47 Pulse Ox 97 11/01/23 08:47 Oxygen Delivery Method Room Air 11/01/23 08:47 BMI result Body Mass Index 24.6 Tobacco/Smoking Status: Tobacco use Status Tobacco use date assessed 11/01/23 11/01/23 08:53 Patient Tobacco Use Status Former Tobacco user 11/01/23 08:53 e-Cigarette/Vaping Use Never Used 11/01/23 08:53 PHQ-9: PHQ-9 Score PHQ-9: Total score 0 11/01/23 09:15 Depression Screening Interpretation: Negative Thrive Assessment: Date of Thrive Assessment Date Thrive assessed 11/01/23 11/01/23 08:53 Currently or been in a relationship where the following occur: no concerns reported Const General: no acute distress and alert HENMT Ears: TM's normal bilaterally and EAC's normal Throat: Yes posterior oropharynx normal and Yes tonsils normal (no TP congestion) Neck Neck: Yes no lymphadenopathy and Yes supple Resp Auscultation: clear to auscultation bilaterally, no rales and no wheezes Cardio Rate: regular rate Rhythm: regular rhythm Heart sounds: Murmur heart sound present systolic soft, II/, at the apex and at the left sternal border GI Palpation (GI): Soft to palpation and nontender Auscultation: normal bowel sounds General: Yes no CVA tenderness Back/Spine/Pelvis Back: no CVA tenderness Skin Rashes: no rashes Extrem General: Yes no clubbing, cyanosis or edema Results Reviewed Results Reviewed: Laboratory Tests 05/09/23 05/09/23 05/09/23 09:56 09:56 09:56 WBC 5.9 Hgb 14.8 Hct 45.4 Plt Count 177 Sodium 138 Potassium 4.3 Creatinine 0.85 Estimated GFR > 60 Fasting Glucose 105 H Calcium 9.4 AST 24 ALT 19 Triglycerides 47 Cholesterol 157 LDL Cholesterol, Calc 78 HDL Cholesterol 70 25-OH Vitamin D Total 79.7 TSH 1.25 Ur Specific Ingram Urine Protein Urine Glucose (UA) Urine Blood 05/09/23 05/09/23 10:00 10:00 WBC Hgb Hct Plt Count Sodium Potassium Creatinine Estimated GFR Fasting Glucose Calcium AST ALT Triglycerides Cholesterol LDL Cholesterol, Calc HDL Cholesterol 25-OH Vitamin D Total TSH Ur Specific Ingram 1.020 Urine Protein Negative Urine Glucose (UA) Negative Urine Blood Negative Assessment and Plan Assessment & Plan (1) Pure hypercholesterolemia: Code(s): E78.00 - Pure hypercholesterolemia, unspecified Plan: Results of his labs done back in April 2023 reviewed and discussed with patient Reinforced low cholesterol diet Continue Atorvastatin 40 mg QD Will have patient recheck his labs and fasting lipids in 6 months for follow up (2) Elevated blood pressure reading: Code(s): R03.0 - Elevated blood-pressure reading, without diagnosis of hypertension Plan: Reinforced low sodium diet Patient's BP today is acceptable - discussed again that systolic BP should at least be at around 130 to 140 mm or less at his age Have reminded patient to continue monitoring his blood pressure regularly (3) Chronic obstructive pulmonary disease, unspecified: Code(s): J44.9 - Chronic obstructive pulmonary disease, unspecified Qualifiers: COPD type: unspecified COPD Qualified Code(s): J44.9 - Chronic obstructive pulmonary disease, unspecified Plan: Patient is an ex-smoker and chest x-rays done in the past have showed (+) emphysematous changes in the lungs Patient reports that he is currently still asymptomatic and has no issues with his breathing other than mild ROMERO at times Has been seen and evaluated by cardiology a couple of years ago and was advised that he has no significant cardiac issues or concerns (4) Cardiac murmur: Code(s): R01.1 - Cardiac murmur, unspecified Plan: Echocardiogram done in 2014 revealed (+) trace MR and trace TR, which are likely the source of his current grade 2/6 soft systolic murmur heard on auscultation His EF and overall LV ssytolic function were normal at the time As patient is currently active and states that he's had no acute issues with SOB and is fairly independent with all daily activities, no further work ups are indicated at this time (5) Vitamin D deficiency: Code(s): E55.9 - Vitamin D deficiency, unspecified Plan: Continue Vitamin D3 2000 units QD (6) BPH w urinary obs/LUTS: Code(s): N40.1 - Benign prostatic hyperplasia with lower urinary tract symptoms; N13.8 - Other obstructive and reflux uropathy Plan: He is currently asymptomatic Continue Finasteride 5 mg QD Follow up with urology (Dr. Heck) as scheduled Plan Follow up in 6 months Orders: Orders Lipid Panel 6 Months E78.00 - Pure hypercholesterolemia, unspecified TSH reflex Free T4 6 Months E78.00 - Pure hypercholesterolemia, unspecified Comprehensive [place]. Panel Fast 6 Months E78.00 - Pure hypercholesterolemia, unspecified Complete Blood Count Auto Diff 6 Months D64.9 - Anemia, unspecified UA CC w/rflx Micro + Cult 6 Months R30.0 - Dysuria Vitamin D 25-OH Total 6 Months E55.9 - Vitamin D deficiency, unspecified Coding Level of Care Code Est Pt Level 4 (12167) Diagnoses Pure hypercholesterolemia E78.00 Elevated blood pressure reading R03.0 Chronic obstructive pulmonary disease, unspecified COPD type J44.9 COPD type: unspecified COPD Cardiac murmur R01.1 Vitamin D deficiency E55.9 BPH w urinary obs/LUTS N40.1; N13.8
== END 2023-11-01 09:27 | disposition home or self-care (01) ==
PROVIDERS: PCP Internal Medicine; Visit Provider Internal Medicine
DX: E78.00 Pure hypercholesterolemia, unspecified (principal); R03.0 Elevated blood-pressure reading, without diagnosis of hypertension; J44.9 Chronic obstructive pulmonary disease, unspecified; R01.1 Cardiac murmur, unspecified; E55.9 Vitamin D deficiency, unspecified; N40.1 Benign prostatic hyperplasia with lower urinary tract symptoms; N13.8 Other obstructive and reflux uropathy
CPT/HCPCS: 99214

== ENCOUNTER 2024-02-13 13:16 | Outpatient (REF) | payer OTHER, SELFPAY ==
[2024-02-13 17:35] LABS: Prostate Specific Antigen 5.61 ng/mL (<0.05-4.0)
== END 2024-02-13 13:17 | disposition home or self-care (01) ==
LOC: HO.HMGCLDS 13:16
PROVIDERS: PCP Internal Medicine; Visit Provider Urology
DX: R97.20 Elevated prostate specific antigen [PSA] (principal); Z12.5 Encounter for screening for malignant neoplasm of prostate
CPT/HCPCS: 36415; 84153

== ENCOUNTER 2024-02-20 08:43 | Outpatient (AMB) | payer OTHER, SELFPAY ==
--- NOTE | 2024-02-20 08:47 | A.OFFVIS_ITS ---
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 He is a patient of Dr Marcus. He seen for the following urologic conditions - elevated PSA - Lower urinary tract symptoms Prostate MRI - 20 g prostate - peripheral zone anterior 1.3 cm PI-RADS 4, peripheral zone right posterior bladder 0.7 cm PI-RADS 4 Recommend targeted prostate biopsy Elevated PSA He presents for - further evaluation of elevated PSA Current management is - finasteride Laboratory investigations include - - a total PSA evaluation - June 2018 13.0, June 2019 7.4, 07/14 9.2, 06/15 7.2, 11/16 5.7, 05/16 8.0 off finasteride, 12/15 4.8 6%, 08/17 4.6 7% Imaging investigations include - Individualized Prostate Cancer Risk Calculator - 10% risk. Discussed repeat PSA. - minimal symptoms Imaging 09/13 bladder ultrasound. PVR 22 cc, prostate 25 g Overall symptoms are mild Therapeutic plan will be -repeat PSA [facility] Medical History (Updated 11/01/23 @ 09:34 by Alan Osman MD) Heart murmur Vitamin D deficiency Dyslipidemia (atherosclerosis) Colonoscopy refused Tobacco use disorder Hemochromatosis carrier Mass in neck Carotid bruit History of smoking Aortic valve calcification Chronic obstructive pulmonary disease, unspecified Shortness of breath on exertion Surgical History Mass in neck Hx of tonsillectomy Family History Father History of emphysema Mother HTN (hypertension) Brother No problems noted. Brother No problems noted. Sister No problems noted. Sister No problems noted. Daughter No problems noted. Social History Housing: House Alcohol intake: current Alcohol intake frequency: 3 or more drinks per day Patient Tobacco Use Status: Former Tobacco user Quit Date: 2011 Years Smoked: 20 +/- e-Cigarette/Vaping Use: Never Used Second Hand Smoke Exposure: Yes service: No Current occupational status: retired Cognitive needs: No Hearing needs: No Vision needs: Yes (reading glasses) Review of Systems Const Denies chills and Denies fever(s) Card Reports no additional complaints and Denies syncope Resp Denies cough GI Denies abdominal pain and Denies heartburn Reports as per HPI and Denies change in libido Neuro Denies syncope Psych Denies change in libido Endo Denies change in libido Physical Exam Const General: cooperative, healthy appearing, comfortable and no acute distress Orientation/consciousness: patient oriented x3 HEENT Face and sinus: Yes normal facial exam Mouth: moist mucous membranes Neck Neck: Yes normal visual inspection, Yes full ROM and Yes trachea midline Chest Chest palpation & inspection: normal inspection of the chest Resp Effort & Inspection: normal respiratory effort, able to speak in complete sentences and no respiratory distress GI Inspection: Yes normal to inspection Back/Spine/Pelvis Cervical Spine: normal cervical lordosis Thoracic/Lumbar Spine: thoracic and lumbar spine normal to inspection Skin General skin exam: no rashes or lesions noted Neuro General: patient oriented x3, gait normal, tone normal and moves all extremities Extrem General: Yes normal to inspection and Yes capillary refill normal Assessment & Plan Assessment & Plan (1) BPH w urinary obs/LUTS: Code(s): N40.1 - Benign prostatic hyperplasia with lower urinary tract symptoms; N13.8 - Other obstructive and reflux uropathy Category: Medical (2) Elevated PSA: Code(s): R97.20 - Elevated prostate specific antigen [PSA] Category: Medical Plan Risks and benefits regarding trans rectal ultrasound with prostate biopsy were discussed. Options of continued surveillance, no treatment and biopsy were offered. The risks include but are not limited to, urinary tract infection, sepsis, difficulty urinating, bleeding into the rectum or bladder that requires intervention and transfusion,and failure to diagnose prostate cancer. The patient understands the options and the risks involved. They wish to proceed. Printed information was provided to ensure he remains off anticoagulation for the appropriate length of time. He may require cardiology or PCP clearance. An antibiotic will be administered prior to, and following the procedure Targeted prostate biopsy Patient Instructions: Imaging studies, laboratory and physical exam results were discussed and reviewed in detail. No major barriers to patient understanding were identified. An opportunity to ask questions regarding the treatment plan was provided. All questions were answered. The patient expressed understanding and agreement with the above treatment plan. The patient is aware they should contact our office by phone for worsening of their current condition or the appearance of new urologic symptoms. Compliance is encouraged with any medications and followup testing that is ordered. It is a privilege to participate in the urologic care of your patient. If you have any questions or concerns regarding treatment for the above conditions, or other urologic issues, please do not hesitate to contact me. The office telephone contact is [phone]. This note is constructed using voice recognition software. While every effort has been made to ensure accuracy metal reed tuner errors may have been included. Yours sincerely, Dr Ishan Heck MD, [facility] - Urology Providers of Expert, Compassionate Care for the Genitourinary System Coding Level of Care Code Est Pt Level 4 (83897) Diagnoses BPH w urinary obs/LUTS N40.1; N13.8 Elevated PSA R97.20
== END 2024-02-20 09:07 | disposition home or self-care (01) ==
PROVIDERS: PCP Internal Medicine; Visit Provider Urology
DX: N40.1 Benign prostatic hyperplasia with lower urinary tract symptoms (principal); N13.8 Other obstructive and reflux uropathy; R97.20 Elevated prostate specific antigen [PSA]
CPT/HCPCS: 99214

== ENCOUNTER → 2024-02-20 08:43 | Outpatient (BNVA) | payer OTHER, SELFPAY | PROVIDERS: PCP Internal Medicine; Visit Provider Urology ==

== ENCOUNTER 2024-04-15 06:09 | Day surgery (SDC) | payer MEDICARE, SELFPAY ==
[2024-04-11 12:27] VITALS: BMI 24.6
[2024-04-15 06:11] VITALS: BP 178/82; PULSE 68; RESP 20; TEMP 36.6; O2SAT 94
[2024-04-15] MEDS: Lactated Ringers 1,000 ML 50 ML IVCONT (06:30)
--- NOTE | 2024-04-15 07:15 | HO.ANESPROP2 ---
[facility] Active Problems Active Problems: All Active Problems Cardiac murmur (Acute) Vitamin D deficiency (Acute) Elevated blood pressure reading (Acute) Pure hypercholesterolemia (Acute) Allergic dermatitis (Acute) BPH w urinary obs/LUTS (Acute) Elevated PSA (Acute) Dyslipidemia (Acute) Screening PSA (prostate specific antigen) (Acute) History of smoking (Acute) Aortic valve calcification (Acute) Chronic obstructive pulmonary disease, unspecified (Acute) Shortness of breath on exertion (Acute) Past Medical History Medical History (Updated 11/01/23 @ 09:34 by Alan Osman MD) Heart murmur Vitamin D deficiency Dyslipidemia (atherosclerosis) Colonoscopy refused Tobacco use disorder Hemochromatosis carrier Mass in neck Carotid bruit History of smoking Aortic valve calcification Chronic obstructive pulmonary disease, unspecified Shortness of breath on exertion Family History Family History Father History of emphysema Mother HTN (hypertension) Brother No problems noted. Brother No problems noted. Sister No problems noted. Sister No problems noted. Daughter No problems noted. Family history of problems with anesthesia: No Surgical History Surgical History Mass in neck Hx of tonsillectomy History of Problems with Anesthesia: No Social History Social History Housing: House Alcohol intake: current Alcohol intake frequency: does not drink Patient Tobacco Use Status: Former Tobacco user Years Smoked: 20 +/- e-Cigarette/Vaping Use: Never Used Second Hand Smoke Exposure: Yes Are you DNR?: No Advance Directives: No Advance Directives Information Provided: Yes service: No Current occupational status: retired Cognitive needs: No Hearing needs: No Vision needs: Yes (reading glasses) Meds Allergies Allergy/AdvReac Type Severity Reaction Status Date / Time No Known Allergies Allergy Verified 02/20/24 08:47 [No Known Allergies*] Active Medications: Current Medications Lactated Ringer's (Lr) 1,000 mls @ 50 mls/hr IVCONT .Q20H JULIANNE Last Admin: 04/15/24 06:30 Dose: 50 mls/hr Exam Height,Weight and Vital Signs: Height 5 ft 8 in Weight 73.482 kg Last Vital Signs Temp 98 F 04/15/24 06:11 Pulse 68 04/15/24 06:11 Resp 20 04/15/24 06:11 BP 178/82 H 04/15/24 06:11 Pulse Ox 94 04/15/24 06:11 O2 Del Method Room Air 04/15/24 06:11 Airway Mallampati Class: III TM Dist: >3cm Neck ROM: Full Denture: Upper Assessment and Plan Assessment Anesthesia Assessment: Anesthesia Plan Discussed and Chart Reviewed Final Anesthetic Review Family History of Problems with Anesthesia: No History of Problems with Anesthesia: No NPO: Yes ASA Class: III Final Preanesthetic Review: No Changes in Pt Med Stat, Meds/Allgs Chart Reviewed, Consent Obtained/Reviewed and Anes Risks/Benef Reviewed Patient Risk: Intermediate Procedure Risk: Low Anesthetic Plan Anesthetic Plan: TIVA Disposition: Standard PACU
--- NOTE | 2024-04-15 07:38 | MHC.SHP ---
Pre-Procedural Eval Section A - 24 Hr Update-Section A only Date of Service: 04/15/24 The patient is an INPATIENT: No Changes since office visit: No Cold of Flu in the past 2 weeks, No New Medical Problems, No Changes in Medication and No Patient answered all questions The patient has been examined within 24 hours of the surgical procedure. The History & Physical has been completed within 30 days and I have reviewed it.: Yes Section B - Complete if H&P > 30 days Chief Complaint: Elevated prostate specific antigen [PSA] Details of Present Illness: Prostate MRI - 20 g prostate - peripheral zone anterior 1.3 cm PI-RADS 4, peripheral zone right posterior bladder 0.7 cm PI-RADS 4 Relevant Social History: None Present Medications: see Short Stay Collaborative assessment Medical History: No relevant PMH History of Previous Operations: No relevant previous surgery Allergies: Allergies Allergy/AdvReac Type Severity Reaction Status Date / Time No Known Allergies Allergy Verified 02/20/24 08:47 [No Known Allergies*] Review of Systems Sugical H&P ROS: Negative: Constitution, Cardiovascular, Respiratory, Neurological, Psychiatric, Hem-Onc, Allergic/Immunologic, Gastrointestinal, Genitourinary, Musculoskeletal, Integumentary, Endocrine and Eyes/Ears/Nose/Throat Exam Surgical H&P Exam: Normal: HEENT, Normal: Heart, Normal: Lungs, Normal: Extremities, Normal: Abdomen, Normal: Skin and Normal: Neurological Plan Diagnosis/Plan: Unchanged (US fusion prostate biopsy) I have reviewed the history and physical and performed a pertinent physical examination on my patient. No changes have occurred unless specified. Time Spent With Patient Time: Total time managing care of this patient today ____ minutes.
[2024-04-15 08:43] VITALS: BP 170/65; PULSE 54; RESP 17; TEMP 36.4; O2SAT 100
[2024-04-15 08:58] VITALS: BP 168/69; PULSE 58; RESP 17; TEMP 36.4; O2SAT 94
--- NOTE | 2024-04-15 08:59 | P.OP_ITS ---
Operative Note Operative Note Date of Service: 04/15/24 Narrative: Preoperative diagnosis: Elevated PSA Postoperative diagnosis: Elevated PSA 5.67 Procedure: 1. transrectal ultrasound-guided pudendal nerve block 2. MRI-US fusion image registration performed 3. transperineal ultrasound-guided prostate biopsy 14 core including targets Surgeon: Dr. Ishan Heck Anesthetic: Sedation plus local Indications for procedure: Elevated PSA Procedure: After informed consent was verified, the patient was brought into the procedure area. Patient identity confirmed. Perioperative antibiotics confirmed. Safety pause time out performed. Anesthesia performed per protocol. Scrotum taped out of operative area. Iodine prep used. Perineal injection of local anesthetic. Digital guided prostate pudendal nerve block performed with 10 cc of 1% lidocaine. 5cc each side. Combination 10cc iodine with 50cc gel was mixed and placed in the rectum. Ultrasound probe was placed per rectum. Ultrasound probe stabilized on a prostate stepper with attached grid. [employer] software and hardware platform used for US image acquisition, US 3D model creation and MRI-US fusion image overlay. Prostate MRI - 20 g prostate - peripheral zone anterior 1.3 cm PI-RADS 4, peripheral zone right posterior bladder 0.7 cm PI-RADS 4 Ultrasound placement was made with external grid calibration for height and prostate diameter in both the transverse and longitudinal planes. Grid A-C covering right prostate and c-F covering left prostate. Numbers 1.0-2.5 covering posterior prostate and 2.5-4.0 covering anterior prostate. Once grid calibration was confirmed prostate ultrasound data acquisition was performed in the transverse fashion. The US images were registered to create model boundaries. A three dimensional ultrasound model was created using [employer] software. The model was reviewed against acquired US images. The planned needle targeting, based on prior acquisition of MRI imaging, was overlaid on the ultrasound images and targets confirmed through ultrasound review. Adjustments were then made between real time and projected model targeting locations. Based on pre-planning evaluation 14 targets had been identified. These included 4 targeted identified lesion/s. He tolerated the procedure well. Was transferred to stable condition in the PACU. Printed instructions regarding antibiotic use and common side effects such as low-grade temperature, potential infection and bleeding were given Pathology: 14 core prostate biopsy CPT 78093 Modifier 22 for complexity of procedure execution (Perineal prostate biopsy) CPT 70049 US/MRI target fusion and manipulation in realtime
== END 2024-04-15 09:37 | disposition home or self-care (01) ==
PROVIDERS: PCP Internal Medicine; Visit Provider Urology
PROC: (CPT 55700; principal; 2024-04-15 07:30)
DX: R97.20 Elevated prostate specific antigen [PSA] (principal); N40.1 Benign prostatic hyperplasia with lower urinary tract symptoms; N13.8 Other obstructive and reflux uropathy; E78.5 Hyperlipidemia, unspecified; E55.9 Vitamin D deficiency, unspecified; I35.8 Other nonrheumatic aortic valve disorders; R01.1 Cardiac murmur, unspecified; J44.9 Chronic obstructive pulmonary disease, unspecified; Z14.8 Genetic carrier of other disease; Z87.891 Personal history of nicotine dependence
CPT/HCPCS: 55706; 88305; 88344; J1100; J1956; J2250; J2405; J2704; J2795; J3010

== ENCOUNTER → 2024-04-15 06:09 | Outpatient (BNV) | payer MEDICARE, SELFPAY | PROVIDERS: PCP Internal Medicine; Visit Provider Urology | DX: R97.20 Elevated prostate specific antigen [PSA] (principal) | CPT/HCPCS: 55706 ==

== ENCOUNTER 2024-04-26 07:29 | Outpatient (REF) | payer MEDICARE, SELFPAY ==
[2024-04-26 10:01] LABS: MANUAL DIFF FLAG NO
[2024-04-26 10:18] LABS: Appearance Urine Clear; Basophils Percent Auto 0.3 % (0-2); Color Urine Yellow; Eosinophils Absolute Auto 0.2 X10*3/uL (0.0-0.4); Eosinophils Percent Auto 3.6 % (0-4); Glucose Urine UA Negative (Negative); Hematocrit 42.9 % (42.0-52.0); Hemoglobin 14.4 g/dl (14.0-18.0); Imm Gran Abs Auto 0.02 X10*3/uL (0.00-0.03); Imm Gran Pct Auto 0.3 % (0.0-0.4); Leukocyte Esterase Urine Trace (Negative); Lymphocytes Absolute Auto 2.7 X10*3/uL (1.2-4.9); Lymphocytes Percent Auto 44.9 % (20-40); Mean Corpuscular HGB Conc 33.6 g/dl (31.0-36.0); Mean Corpuscular Hemoglobin 32.7 pg (27.0-33.0); Mean Corpuscular Volume 97.3 fL (80.0-98.0); Mean Platelet Volume 10.6 fL (9.4-12.4); Monocytes Absolute Auto 0.5 X10*3/uL (0.1-1.2); Neutrophils Absolute Auto 2.5 x10*3/uL (2.0-8.3); Neutrophils Percent Auto 41.9 % (45-73); Nitrite Urine Negative (Negative); Platelet Count 185 X10*3/uL (160-400); Red Blood Count 4.41 X10*6/uL (4.60-5.80); UMIC TRIGGER UACC YES; Urine Blood Small (1+) (Negative); Urine Ketones Negative (Negative); Urine Protein Negative (Neg-Trace)
[2024-04-26 10:36] LABS: Bacteria Urine None Seen (None Seen); Hyaline Casts Urine 0-2 /LPF (0-2); RBC Urine 0-2 /HPF (0-2); Squamous Epithelial Cell Urine 0-2 /HPF (0-2); WBC Urine 0-5 /HPF (0-5)
[2024-04-26 10:43] LABS: Alanine Aminotransferase 18 U/L (0-40); Albumin Level 4.2 g/dL (3.5-5.0); Alkaline Phosphatase 53 U/L (39-117); Anion Gap 10 (12-20); Aspartate Amino Transferase 23 U/L (5-37); Blood Urea Nitrogen 12 mg/dL (9-16); Calcium 9.1 mg/dL (8.4-10.2); Carbon Dioxide 30 mmol/L (22-29); Chloride 103 mmol/L (96-108); Cholesterol 161 mg/dL (<200); Estimated Glomerular Filt Rate > 60; Glucose Fasting 110 mg/dL (60-99); HDL Cholesterol 68 mg/dL (>40); LDL Cholesterol Calculated 84 mg/dL (<100); Potassium 4.6 mmol/L (3.3-5.1); Sodium 138 mmol/L (135-145); Total Protein 6.9 g/dL (6.5-8.0); Triglycerides 48 mg/dL (<150)
[2024-04-26 10:59] LABS: TSH reflex Free T4 1.66 uIU/mL (0.32-4.0); Vitamin D 25-OH Total 70.3 ng/mL (>30)
== END 2024-04-26 07:30 | disposition home or self-care (01) ==
LOC: HO.HMGCLDS 07:29
PROVIDERS: PCP Internal Medicine; Visit Provider Internal Medicine
DX: D64.9 Anemia, unspecified (principal); E78.00 Pure hypercholesterolemia, unspecified; E55.9 Vitamin D deficiency, unspecified; R30.0 Dysuria
CPT/HCPCS: 36415; 80053; 80061; 81001; 82306; 84443; 85025

== ENCOUNTER 2024-04-26 14:10 | Outpatient (AMB) | payer MEDICARE, SELFPAY ==
--- NOTE | 2024-04-26 14:11 | MHC.OFFVIS ---
Intake Visit Reasons: Prostate bx results Intake Note: Patient is Present for Telephone Follow Up Biopsy Results Urology Med: Finasteride Antibiotic Allergy: None Blood Thinner: None Children'S Book Author Required: No Allergies No Known Allergies [No Known Allergies*] Allergy (Verified 07/11/24 14:14) HPI Comments Details: Víctor Jaramillo is a very pleasant male. He is a patient of Dr Marcus. He seen for the following urologic conditions - elevated PSA - Lower urinary tract symptoms Telemedicine Evaluation 15 min Consultation [employer] Paul Video Follow-up from targeted prostate biopsy BPH Six-month follow-up finasteride Elevated PSA He presents for - further evaluation of elevated PSA Current management is - finasteride Laboratory investigations include - - a total PSA evaluation - June 2018 13.0, June 2019 7.4, 07/14 9.2, 06/15 7.2, 11/16 5.7, 05/16 8.0 off finasteride, 12/15 4.8 6%, 08/17 4.6 7% Imaging investigations include - Prostate MRI - 20 g prostate - peripheral zone anterior 1.3 cm PI-RADS 4, peripheral zone right posterior bladder 0.7 cm PI-RADS 4 Individualized Prostate Cancer Risk Calculator - 10% risk. Discussed repeat PSA. - minimal symptoms Imaging 09/13 bladder ultrasound. PVR 22 cc, prostate 25 g Overall symptoms are mild Therapeutic plan will be -repeat PSA PFSH Medical History Heart murmur Vitamin D deficiency Dyslipidemia (atherosclerosis) Colonoscopy refused Tobacco use disorder Hemochromatosis carrier Mass in neck Carotid bruit History of smoking Aortic valve calcification Chronic obstructive pulmonary disease, unspecified Shortness of breath on exertion Surgical History Mass in neck Hx of tonsillectomy Family History Father History of emphysema Mother HTN (hypertension) Brother No problems noted. Brother No problems noted. Sister No problems noted. Sister No problems noted. Daughter No problems noted. Social History Housing: House Alcohol intake: current Alcohol intake frequency: does not drink Patient Tobacco Use Status: Former Tobacco user Tobacco use type: Cigarette Years Smoked: 20 +/- e-Cigarette/Vaping Use: Never Used Second Hand Smoke Exposure: Yes service: No Current occupational status: retired Cognitive needs: No Hearing needs: No Vision needs: Yes (reading glasses) Telehealth Telehealth Telehealth Platform: [employer] Location of provider rendering services: practice address Location of patient: address on file Patient Identification confirmed using: Name, : Yes Telehealth method: video Patient verbally consented to treatment: Yes Patient verbally consented to billing insurance company: Yes Patient informed of any privacy concerns related to visit: Yes Minutes spent on Phone/Video with Pt.: 15 Assessment & Plan Assessment & Plan (1) Elevated PSA: Code(s): R97.20 - Elevated prostate specific antigen [PSA] Category: Medical (2) BPH w urinary obs/LUTS: Code(s): N40.1 - Benign prostatic hyperplasia with lower urinary tract symptoms; N13.8 - Other obstructive and reflux uropathy Category: Medical Plan Six-month follow-up PSA Orders: Orders PSA,Total (Free>4and<10) 6 Months R97.20 - Elevated prostate specific antigen [PSA] Patient Instructions: Imaging studies, laboratory and physical exam results were discussed and reviewed in detail. No major barriers to patient understanding were identified. An opportunity to ask questions regarding the treatment plan was provided. All questions were answered. The patient expressed understanding and agreement with the above treatment plan. The patient is aware they should contact our office by phone for worsening of their current condition or the appearance of new urologic symptoms. Compliance is encouraged with any medications and followup testing that is ordered. It is a privilege to participate in the urologic care of your patient. If you have any questions or concerns regarding treatment for the above conditions, or other urologic issues, please do not hesitate to contact me. The office telephone contact is [phone]. This note is constructed using voice recognition software. While every effort has been made to ensure accuracy county sheriff errors may have been included. Yours sincerely, Dr Ishan Heck MD, [facility] - Urology Providers of Expert, Compassionate Care for the Genitourinary System Coding Level of Care Code Tele Est Pt Level 3 (12641) Diagnoses Elevated PSA R97.20 BPH w urinary obs/LUTS N40.1; N13.8
== END 2024-04-26 16:30 | disposition home or self-care (01) ==
LOC: HO.HUSH 14:10
PROVIDERS: PCP Internal Medicine; Visit Provider Urology
DX: R97.20 Elevated prostate specific antigen [PSA] (principal); N40.1 Benign prostatic hyperplasia with lower urinary tract symptoms; N13.8 Other obstructive and reflux uropathy
CPT/HCPCS: 99213

== ENCOUNTER 2024-05-01 09:34 | Outpatient (AMB) | payer OTHER, SELFPAY ==
[2024-05-01 09:40] VITALS: BP 144/78; PULSE 79; O2SAT 96; BMI 24.2
--- NOTE | 2024-05-01 09:40 | A.OFFPC_ITS ---
Vital Signs 05/01/24 09:40 Height 5 ft 8 in Weight 159 lb BMI 24.2 BP 144/78 H Blood Pressure Location Lt brachial Position Sitting Pulse 79 Pulse Source Pulse Oximeter Pulse Oximetry (%) 96 Oxygen Delivery Method Room Air Intake Visit Reasons: hyperlipidemia, BPH Allergies No Known Allergies [No Known Allergies*] Allergy (Verified 05/01/24 10:07) Medication List - Last Reconciled 05/01/24 by Alan Osman MD atorvastatin 40 mg PO BEDTIME 90 days cholecalciferol (vitamin D3) 50 mcg PO DAILY 90 days finasteride 5 mg PO DAILY 90 days Tobacco use date assessed: 11/01/23 Fall risk assessment: No Falls in past year Last assessed Fall Risk: 05/01/24 Dental Screening Dental Screen Date: 11/01/23 HPI hyperlipidemia, BPH HPI Details Patient comes in today for his follow up visit States that he feels okay He had prostate Bx done a couple of weeks ago and was very happy to learn that all of his biopsies came back negative He was also started on Finasteride [address] Heck last week He denies any headaches or dizziness Denies any chest pains, no SOB No nausea/vomiting, no abdominal pain No change in bowel habits noted Needs his Atorvastatin Rx refilled He had his follow up labs done last week - to discuss his results [facility] Medical History Heart murmur Vitamin D deficiency Dyslipidemia (atherosclerosis) Colonoscopy refused Tobacco use disorder Hemochromatosis carrier Mass in neck Carotid bruit History of smoking Aortic valve calcification Chronic obstructive pulmonary disease, unspecified Shortness of breath on exertion Surgical History Mass in neck Hx of tonsillectomy Family History Father History of emphysema Mother HTN (hypertension) Brother No problems noted. Brother No problems noted. Sister No problems noted. Sister No problems noted. Daughter No problems noted. Social History Housing: House Alcohol intake: current Alcohol intake frequency: does not drink Patient Tobacco Use Status: Former Tobacco user Tobacco use type: Cigarette Years Smoked: 20 +/- e-Cigarette/Vaping Use: Never Used Second Hand Smoke Exposure: Yes service: No Current occupational status: retired Cognitive needs: No Hearing needs: No Vision needs: Yes (reading glasses) Questionnaire PHQ-9 Over the last 2 weeks, how often have you been bothered by any of the following problems? 1. Little interest or pleasure in doing things: not at all 2. Feeling down, depressed, or hopeless: not at all 3. Trouble falling or staying asleep, or sleeping too much: not at all 4. Feeling tired or having little energy: not at all 5. Poor appetite or overeating: not at all 6. Feeling bad about yourself - or that you are a failure or have let yourself or your family down: not at all 7. Trouble concentrating on things, such as reading the newspaper or watching television: not at all 8. Moving or speaking so slowly that other people could have noticed. Or the opposite - being so fidgety or restless that you have been moving around a lot more than usual: not at all 9. Thoughts that you would be better off or of hurting yourself in some way: not at all Total score: 0 Depression Screening Interpretation: Negative Depression Screening Done: Yes 66362 - PHQ-9 Billing: Yes Source: Developed by Drs. Rogelio Salomon, Raghu Mason and colleagues, with an educational john from [employer]. Thrive Questionnaire Date Thrive assessed: 11/01/23 AUDIT C Alcohol Use Questionnaire (AUDIT-C) 1. How often do you have a drink containing alcohol?: Never 3. How often do you have six or more drinks on one occasion?: Never Total Score: 0 Score Reviewed/Action Taken: Yes LEELEE-7 AMB Questionnaire LEELEE-7 Date LEELEE - 7 assessed: 11/01/23 Source: Developed by Drs. Rogelio Salomon, Raghu Mason and colleagues, with an educational jonh from [employer]. Review of Systems Const Denies chills, Denies fatigue, Denies fever(s) and Denies headache(s) ENT Denies dysphagia, Denies dizziness, Denies otalgia, Denies headache(s), Denies neck pain, Denies odynophagia and Denies sore throat Card Denies chest pain, Denies palpitations and Denies dyspnea Resp Denies cough and Denies dyspnea GI Denies abdominal pain, Denies constipation, Denies dysphagia, Denies heartburn, Denies diarrhea, Denies nausea, Denies odynophagia and Denies vomiting Denies dysuria, Denies nocturia and Denies urinary frequency Musc Denies back pain and Denies neck pain Skin/Breast Denies rash Neuro Denies dizziness and Denies headache(s) Endo Denies fatigue and Denies palpitations Physical exam (Primary Care) Vital Signs: Last Vital Signs Pulse 79 05/01/24 09:40 BP 144/78 H 05/01/24 09:40 Pulse Ox 96 05/01/24 09:40 Oxygen Delivery Method Room Air 05/01/24 09:40 BMI result Body Mass Index 24.2 Tobacco/Smoking Status: Tobacco use Status Tobacco use date assessed 11/01/23 05/01/24 09:47 Patient Tobacco Use Status Former Tobacco user 05/01/24 09:47 Tobacco use type Cigarette 05/01/24 09:47 e-Cigarette/Vaping Use Never Used 05/01/24 09:47 PHQ-9: PHQ-9 Score PHQ-9: Total score 0 05/01/24 09:47 Depression Screening Interpretation: Negative Thrive Assessment: Date of Thrive Assessment Date Thrive assessed 11/01/23 05/01/24 09:47 Const General: no acute distress and alert HENMT Ears: TM's normal bilaterally and EAC's normal Throat: Yes posterior oropharynx normal and Yes tonsils normal (no TP congestion) Neck Neck: Yes no lymphadenopathy and Yes supple Thyroid: Thyroid normal Resp Auscultation: clear to auscultation bilaterally, no rales and no wheezes Cardio Rate: regular rate Rhythm: regular rhythm Heart sounds: Murmur heart sound present systolic soft, II/, at the apex and at the left sternal border GI Palpation (GI): Soft to palpation and nontender Auscultation: normal bowel sounds General: Yes no CVA tenderness Back/Spine/Pelvis Back: no CVA tenderness Skin Rashes: no rashes Extrem General: Yes no clubbing, cyanosis or edema Results Reviewed Results Reviewed: Laboratory Tests 04/26/24 07:44 WBC 6.0 Hgb 14.4 Hct 42.9 Plt Count 185 Sodium 138 Potassium 4.6 Creatinine 0.83 Estimated GFR > 60 Fasting Glucose 110 H Calcium 9.1 AST 23 ALT 18 Triglycerides 48 Cholesterol 161 LDL Cholesterol, Calc 84 HDL Cholesterol 68 25-OH Vitamin D Total 70.3 TSH 1.66 Ur Specific [place] 1.010 Urine Protein Negative Urine Glucose (UA) Negative Urine Blood Small (1+) H Urine Nitrite Negative Ur Leukocyte Esterase Trace H Assessment and Plan Assessment & Plan (1) Pure hypercholesterolemia: Code(s): E78.00 - Pure hypercholesterolemia, unspecified Plan: Results of his labs done last week reviewed and discussed with patient Reinforced low cholesterol diet Continue Atorvastatin 40 mg QD - Rx refilled Will have patient recheck his labs and fasting lipids in 6 months for follow up (2) Elevated blood pressure reading: Code(s): R03.0 - Elevated blood-pressure reading, without diagnosis of hypertension Plan: Reinforced low sodium diet Patient's BP today is acceptable - discussed again that systolic BP should at least be at around 130 to 140 mm or less for his age Have reminded patient to continue monitoring his blood pressure regularly (3) Chronic obstructive pulmonary disease, unspecified: Code(s): J44.9 - Chronic obstructive pulmonary disease, unspecified Qualifiers: COPD type: unspecified COPD Qualified Code(s): J44.9 - Chronic obstructive pulmonary disease, unspecified Plan: Patient is an ex-smoker and chest x-rays done in the past have showed (+) emphysematous changes in the lungs Patient reports that he is currently still asymptomatic and has no issues with his breathing other than mild ROMERO at times He has been seen and evaluated by cardiology a couple of years ago and was advised that he has no significant cardiac issues or concerns (4) Cardiac murmur: Code(s): R01.1 - Cardiac murmur, unspecified Plan: Echocardiogram done in 2015 revealed (+) trace MR and trace TR, which are likely the source of his current grade 2/6 soft systolic murmur heard on auscultation His EF and overall LV systolic function were normal at the time As patient is currently active and states that he's had no acute issues with SOB and is fairly independent with all daily activities, no further work ups are indicated at this time (5) Impaired fasting glucose: Code(s): R73.01 - Impaired fasting glucose Plan: He is advised that his fasting glucose is again elevated on his recent labs Will recheck this in 6 months and will also check his HgbA1c then for further evaluation (6) Vitamin D deficiency: Code(s): E55.9 - Vitamin D deficiency, unspecified Plan: Continue Vitamin D3 2000 units QD (7) BPH w urinary obs/LUTS: Code(s): N40.1 - Benign prostatic hyperplasia with lower urinary tract symptoms; N13.8 - Other obstructive and reflux uropathy Plan: He is currently asymptomatic Continue Finasteride 5 mg QD Follow up with urology (Dr. Heck) as scheduled Plan Follow up in 6 months Orders: Orders Lipid Panel 6 Months E78.00 - Pure hypercholesterolemia, unspecified Complete Blood Count Auto Diff 6 Months D64.9 - Anemia, unspecified Comprehensive [place]. Panel Fast 6 Months E78.00 - Pure hypercholesterolemia, unspecified Hemoglobin A1c 6 Months R73.01 - Impaired fasting glucose Medications: Refilled atorvastatin 40 mg PO BEDTIME 90 days 90 tabs 1RF Coding Level of Care Code Est Pt Level 4 (83036) Diagnoses Pure hypercholesterolemia E78.00 Elevated blood pressure reading R03.0 Chronic obstructive pulmonary disease, unspecified COPD type J44.9 COPD type: unspecified COPD Cardiac murmur R01.1 Impaired fasting glucose R73.01 Vitamin D deficiency E55.9 BPH w urinary obs/LUTS N40.1; N13.8
== END 2024-05-01 10:13 | disposition home or self-care (01) ==
PROVIDERS: PCP Internal Medicine; Visit Provider Internal Medicine
DX: E78.00 Pure hypercholesterolemia, unspecified (principal); R03.0 Elevated blood-pressure reading, without diagnosis of hypertension; J44.9 Chronic obstructive pulmonary disease, unspecified; R01.1 Cardiac murmur, unspecified; R73.01 Impaired fasting glucose; E55.9 Vitamin D deficiency, unspecified; N40.1 Benign prostatic hyperplasia with lower urinary tract symptoms; N13.8 Other obstructive and reflux uropathy
CPT/HCPCS: 99214

== ENCOUNTER 2024-07-11 13:24 | Emergency (ER) | payer MEDICARE, SELFPAY ==
--- NOTE | ~2024-07-11 | XR_ITS ---
EXAMINATION: XR KNEE, LEFT CLINICAL INFORMATION: Pain and trauma COMPARISON: None available. TECHNIQUE: Four views of the left knee. FINDINGS: There is a transverse nondisplaced, nondistracted fracture of the mid pole of the patella. The remainder of the osseous structures are intact. No significant joint effusion is evident. Advanced femoropopliteal atherosclerotic calcifications are noted. XR/XR knee LT 4V IMPRESSION: Nondisplaced, nondistracted transverse fracture of the mid pole of the patella. Electronically signed by: Lorne Chavez MD 07/11/2024 03:27 PM EDT
[2024-07-11 14:12] VITALS: BP 157/79; PULSE 93; RESP 16; TEMP 36.7; O2SAT 94; BMI 24.3
--- NOTE | 2024-07-11 14:12 | ED_ITS ---
HPI - Extremity Injury (Lower) General Chief Complaint: Fall Stated Complaint: fall-l knee inj Time Seen by Provider: 07/11/24 15:47 Source: patient Mode of arrival: ambulatory Limitations: no limitations History of Present Illness ED Provider: MAURICIO BARKER PA-C HPI Narrative: 78 year old male with pmhx significant for COPD, HDL, current tobacco smoker presents to the ED today with left knee pain s/p mechanical fall yesterday. Patient reports tripping over his cat, causing him to fall directly onto his left knee. Denies head strike or LOC. Not on anticoagulation. Endorses immediate pain to the front of the knee, worse with ambulation and flexion of the knee. No difficulty ambulating. Patient drove himself to the ED today. No OTC pain meds FIRE LOOKOUT in ED. denies numbness, tingling, weakness of the left lower extremity. Related Data Previous Rx's ?Medication ?Instructions ?Recorded cholecalciferol (vitamin D3) 50 50 mcg PO DAILY 90 days #90 caps 10/31/23 mcg (2,000 unit) capsule finasteride 5 mg tablet 5 mg PO DAILY 90 days #90 tabs 04/26/24 atorvastatin 40 mg tablet 40 mg PO BEDTIME 90 days #90 tabs 06/18/24 naproxen 500 mg tablet 500 mg PO Q12H PRN pain (scale 07/11/24 score 1-3) #20 tabs prednisone 20 mg tablet 40 mg (2 x 20 mg) PO DAILY 5 days 07/11/24 #10 tabs Allergies Allergy/AdvReac Type Severity Reaction Status Date / Time No Known Allergies Allergy Verified 07/11/24 14:14 [No Known Allergies*] Review of Systems Review of Systems: Constitutional: No fever, chills, fatigue, night sweats, weight changes ENT/Mouth: No ear pain, hearing loss, nasal congestion, sinus pain, rhinorrhea, sore throat Eyes: No eye pain, swelling, redness, vision changes, discharge Cardio: No chest pain, palpitations, ROMERO, orthopnea, peripheral edema Pulm: No SOB, cough, sputum, wheezing, dyspnea, hemoptysis GI: No nausea, vomiting, hematemesis, abdominal pain, diarrhea, constipation, hematochezia, melena : No irregular bleeding, dysuria, frequency, urgency, hesitancy, hematuria, flank pain, urinary flow changes, urinary incontinence or retention MSK: No back pain, neck pain, joint pain, myalgias, +left knee pain Skin: No lesions, rashes Neuro: No weakness, numbness, paresthesias, LOC, dizziness, headache Psych: No anxiety/panic, depression, SI/HI, AH/VH All other systems reviewed and are negative. [facility] Past Medical History Attestation statement: The following information was validated with the patient. Source: old records reviewed and nursing notes reviewed Medical History Heart murmur Vitamin D deficiency Dyslipidemia (atherosclerosis) Colonoscopy refused Tobacco use disorder Hemochromatosis carrier Mass in neck Carotid bruit History of smoking Aortic valve calcification Chronic obstructive pulmonary disease, unspecified Shortness of breath on exertion Surgical History Mass in neck Hx of tonsillectomy Family History Family History Father History of emphysema Mother HTN (hypertension) Brother No problems noted. Brother No problems noted. Sister No problems noted. Sister No problems noted. Daughter No problems noted. Social History Social History Housing: House Alcohol intake: current Alcohol intake frequency: does not drink Patient Tobacco Use Status: Former Tobacco user Tobacco use type: Cigarette Years Smoked: 20 +/- e-Cigarette/Vaping Use: Never Used Second Hand Smoke Exposure: Yes Advance Directives: No Advance Directives Information Provided: Yes Do you have a plan to hurt others: No Plan service: No Current occupational status: retired Cognitive needs: No Hearing needs: No Vision needs: Yes (reading glasses) Physical Exam Vital Signs: Vital Signs: Last Vital Signs Temp 98.4 F 07/11/24 16:22 Pulse 90 07/11/24 16:22 Resp 20 07/11/24 16:22 BP 152/78 H 07/11/24 16:22 Pulse Ox 98 07/11/24 16:22 O2 Del Method Room Air 07/11/24 16:22 BMI result Body Mass Index 24.3 Patient hypertensive, vitals otherwise WNL General: Well appearing, in no acute distress. Skin: Warm, dry, intact. No rashes or lesions. Head: Normocephalic, atraumatic. Cardiac: Chest wall symmetric. RRR. Lungs: Normal respiratory effort without accessory muscle use. CTA bilaterally. Back: No midline spinous or paraspinal tenderness. No step off deformity. Ext: +left knee without obvious swelling or deformity. No overlying skin changes. Tender to palpation over patella and tibial plateau region without palpable deformity or crepitus. Full ROM intact to left knee with pain on flexion. Able to lift extremity off bed. Patellar tendon and quadriceps tendon intact. 2+ PT/DP pulse intact. Neuro: AOx3. Normal speech. Ambulating with slight limping gait. Psych: Appropriate mood and affect. Responds appropriately to questions. Course Course Course Narrative: This is a Rapid Medical Examination (RME) performed by George Tran PA-C in triage. Full HPI, ROS, assessment and treatment plan per primary provider in the Main ED. 78 yo male presents to the ER for evaluation of left knee pain that has been worsening since he tripped over the cat and fell onto the left knee. pain is in the left knee and tibial plateau. worse with ambulation, worsening since this morning. no hip or ankle pain. not on anticoagulation. no head strike. Plan: xr left knee Reevaluation(s) Reevaluation #1: 6913 -- x-ray left knee showing nondisplaced, non distracted transverse fracture of the mid pole of the patella. No concern for patellar tendon injury or quadriceps tendon injury. I did reach out to orthopedic FRANCISCA Peter who recommends knee immobilizer, crutches and for patient to be nonweightbearing until follow-up with ortho outpatient. > knee immobilizer applied. I did informed patient that he needs to be nonweightbearing until follow up with orthopedic doctor. He states that he does not want crutches provided by [facility] as he has these at home. naproxen and prednisone sent to pharmacy. Patient has remained stable throughout ED visit today. Discussed worrisome signs and symptoms and when to return to the ED. All questions answered at this time. Patient is agreeable with disposition and stable for discharge. Medications Administered Discontinued Medications Generic Name Dose Route Start Last Admin Trade Name Freq PRN Reason Stop Dose Admin Naproxen 500 mg 07/11/24 16:04 07/11/24 16:10 Naproxen 500 Mg Tablet PO 07/11/24 16:05 500 mg ONCE ONE Administration Medical Decision Making Medical Decision Making MDM Narrative: 78 year old male with pmhx significant for COPD, HDL, current tobacco smoker presents to the ED today with left knee pain s/p mechanical fall yesterday. Hyp ertensive, vitals otherwise wnl. On exam, left knee without obvious swelling or deformity. No overlying skin changes. Tender to palpation over patella and tibial plateau region without palpable deformity or crepitus. Full ROM intact to left knee with pain on flexion. Able to lift extremity off bed. Patellar tendon and quadriceps tendon intact. 2+ PT/DP pulse intact. Ambulating with slight limping gait. Differential diagnosis includes fracture, dislocation, subluxation, contusion. Unlikely neurovascular compromise, threat to limb, compartment syndrome. Plan for x-rays, pain control, re-evaluation. Differential Diagnosis Differential Diagnoses: The differential diagnosis associated with the presentation includes as above. Admission/Observation not indicated. Independent Interpretation I performed an independent interpretation of an: Plain X-Ray Interpretation: xr left knee with patellar fracture, agree with radiologist's interpretation. Radiology Impression Discussion of test interpretation with radiology: I have reviewed the radiologist's reading. Radiologist Impression: EXAMINATION: XR KNEE, LEFT CLINICAL INFORMATION: Pain and trauma COMPARISON: None available. TECHNIQUE: Four views of the left knee. FINDINGS: There is a transverse nondisplaced, nondistracted fracture of the mid pole of the patella. The remainder of the osseous structures are intact. No significant joint effusion is evident. Advanced femoropopliteal atherosclerotic calcifications are noted. XR/XR knee LT 4V IMPRESSION: Nondisplaced, nondistracted transverse fracture of the mid pole of the patella. Electronically signed by: Lorne Chavez MD 07/11/2024 03:27 PM EDT External Record Review External record reviewed: Inpatient record Prescription Management I considered prescription management with: Pain Medication (naproxen) and Other (prednisone) Social Determinants Patient?s care significantly limited by Social Determinants of Health including: Other Social Determinant of Health Procedures Orthopedic Splinting/Casting Injury #1: Side: left Lower Extremity Injury Location: knee Lower Extremity Immobilizer: knee immobilizer Other Orthopedic Equipment: crutches Critical Care Time Critical Care Time Critical Care Time: No Discharge Plan Discharge Clinical Impression: Patellar fracture Qualifiers: Encounter type: initial encounter Fracture type: closed Fracture morphology: transverse Fracture alignment: nondisplaced Patient Disposition: Home, Self-Care Instructions: Crutch Instructions (ED), Patellar Fracture (ED), Knee Immobilizer (ED) Additional Instructions: You were evaluated in the ED today for left knee pain after fall. Your x-ray shows: XR knee LT 4V IMPRESSION: Nondisplaced, nondistracted transverse fracture of the mid pole of the patella. You were placed in a knee immobilizer. Please keep this applied until follow-up with ortho. You may remove this to shower. Use crutches and do not bear weight on your left leg until follow up with ortho. Naproxen as an anti-inflammatory that has been sent to your pharmacy that you may take every 12 hours as needed for pain. Prednisone as a steroid that has been sent to your pharmacy for you to take over the next 5 days. Please follow up with the orthopedic doctor. You have been provided with a referral. Call them to make an appointment. They will not call you. Return with new or worsening symptoms. In the case of an emergency call 911. Prescriptions: New naproxen 500 mg tablet 500 mg PO Q12H PRN (Reason: pain (scale score 1-3)) Qty: 20 0RF prednisone 20 mg tablet 40 mg PO DAILY 5 Days Qty: 10 0RF No Action cholecalciferol (vitamin D3) 50 mcg (2,000 unit) capsule 50 mcg PO DAILY 90 Days Qty: 90 3RF atorvastatin 40 mg tablet 40 mg PO BEDTIME 90 Days Qty: 90 1RF finasteride 5 mg tablet 5 mg PO DAILY 90 Days Qty: 90 3RF Referrals: [facility] [Provider Group] - 3 days (Patellar fracture) Alan Osman MD [Primary Care Provider] - Interventions: ED Discharge Assessment Last Done: 07/11/24 16:22 Discharge Date/Time: 07/11/24 16:23 Print Language: Trinidadian
[2024-07-11] MEDS: NaPROXEN 500 MG TABLET PO (16:10)
[2024-07-11 16:11] VITALS: BP 152/78; PULSE 90; RESP 20; TEMP 36.9; O2SAT 98
[2024-07-11 16:22] VITALS: BP 152/78; PULSE 90; RESP 20; TEMP 36.9; O2SAT 98
== END 2024-07-11 16:23 | disposition home or self-care (01) ==
PROVIDERS: Emergency Provider Internal Medicine; PCP Internal Medicine
DX: S82.035A Nondisplaced transverse fracture of left patella, initial encounter for closed fracture (principal); J44.9 Chronic obstructive pulmonary disease, unspecified; M25.562 Pain in left knee; F17.210 Nicotine dependence, cigarettes, uncomplicated; W01.0XXA Fall on same level from slipping, tripping and stumbling without subsequent striking against object, initial encounter; Y93.89 Activity, other specified; Y92.89 Other specified places as the place of occurrence of the external cause; Y99.8 Other external cause status; Z79.899 Other long term (current) drug therapy
CPT/HCPCS: 29505; 73564; 99283; 99284

== ENCOUNTER 2024-07-15 12:51 | Outpatient (AMB) | payer MEDICARE, SELFPAY ==
[2024-07-15 13:14] VITALS: BMI 24.3
--- NOTE | 2024-07-15 13:14 | A.OFFVIS_ITS ---
Vital Signs 07/15/24 13:14 Height 5 ft 8 in Weight 160 lb BMI 24.3 Intake Visit Reasons: FC - left patellar injury, DOI 07/10/24 Intake Note: Víctor is a 78 year old male who presents today for a evaluation of his left knee injury, DOI 07/10/24. Patient reports tripping over his cat, causing him to fall directly onto his left knee. Patient reports that the knee is feeling better and his swelling has improved. He is walking ok but having some difficulty with ambulation of stairs. He has not been taking anything for pain Allergies No Known Allergies [No Known Allergies*] Allergy (Verified 07/11/24 14:14) HPI HPI FC - left patellar injury, DOI 07/10/24: Details: 78-year-old male who presents in the office today as a new patient, for an evaluation of left knee pain. The patient presented to the ED on 07/11/24 status post a mechanical fall that occurred on 07/10/24. He reported that he tripped over his cat, resulting in landing directly on his left knee. Since then he has been experiencing worsening left knee pain that aggravates with ambulation. X- rays of the left knee were obtained. He was placed in a knee immobilizer. He was recommended using crutches, which he has at home, and was advised to be non- weight bearing. He was prescribed naproxen 500 mg PO Q12H for pain and prednisone 40 mg PO daily for 5 days. While in the office today, the patient reports improved left knee pain and edema. He can ambulate; however, he mentions difficulty with ambulating the stairs. He states he has not tried anything for pain relief. [facility] Medical History Heart murmur Vitamin D deficiency Dyslipidemia (atherosclerosis) Colonoscopy refused Tobacco use disorder Hemochromatosis carrier Mass in neck Carotid bruit History of smoking Aortic valve calcification Chronic obstructive pulmonary disease, unspecified Shortness of breath on exertion Surgical History Mass in neck Hx of tonsillectomy Family History Father History of emphysema Mother HTN (hypertension) Brother No problems noted. Brother No problems noted. Sister No problems noted. Sister No problems noted. Daughter No problems noted. Social History Housing: House Alcohol intake: current Alcohol intake frequency: does not drink Patient Tobacco Use Status: Former Tobacco user Tobacco use type: Cigarette Years Smoked: 20 +/- e-Cigarette/Vaping Use: Never Used Second Hand Smoke Exposure: Yes service: No Current occupational status: retired Cognitive needs: No Hearing needs: No Vision needs: Yes (reading glasses) Review of Systems Const All systems reviewed & are unremarkable except as noted in HPI and below Physical Exam Vital Signs: BMI result Body Mass Index 24.3 Const General: cooperative and no acute distress Orientation/consciousness: patient oriented x3 Resp Effort & Inspection: normal respiratory effort and able to speak in complete sentences Cardio Peripheral pulses: Peripheral pulses 2+ throughout Skin General skin exam: no rashes or lesions noted Neuro General: patient oriented x3 Extrem Other: Left knee: Resolving ecchymosis. No tenderness to palpation over the inferior pole of the patella at the fracture site. He is able to perform full active flexion and extension to end range without difficulty. No palpable defect at the quad tendon attachment or patellar tendon attachment. NVI. Office Procedures AMB Fracture Care Fracture Billing Code: Fracture Billing Code Assessment & Plan Assessment & Plan (1) Left patella fracture: Code(s): S82.002A - Unspecified fracture of left patella, initial encounter for closed fracture Category: Medical Plan Mr. Jaramillo is a 78-year-old male who presents in the office today as a new patient, for an evaluation of left knee pain. The patient presented to the ED on 07/11/24 status post a mechanical fall that occurred on 07/10/24. He reported that he tripped over his cat, resulting in landing directly on his left knee. Since then he has been experiencing worsening left knee pain that aggravates with ambulation. X-rays of the left knee were obtained. He was placed in a knee immobilizer. He was recommended using crutches, which he has at home, and was advised to be non-weight bearing. He was prescribed naproxen 500 mg PO Q12H for pain and prednisone 40 mg PO daily for 5 days. While in the office today, the patient reports improved left knee pain and edema. He can ambulate; however, he mentions difficulty with ambulating the stairs. He states he has not tried anything for pain relief. The case was reviewed by Dr. Jacob was available to speak with me but unable to see the patient, and a collaborative treatment plan was made. He was placed into a playmaker knee brace, off the shelf, allowing motion from 0-45 degrees. He was instructed not to bend his left knee past 45 degrees as there is a risk of fracture or displacement due to risk of fracture or knee displacement which would necessitate surgical intervention. Follow-up will be in 3 months with repeat x-rays, or sooner if needed. X-rays of the left knee, obtained on , revealed: Nondisplaced, non distracted transverse fracture of the mid pole of the patella. Patient Instructions: Scribed by Tali Billings, medical director, for Megdona Funk PA-C on 07/15/24 at 1:35 pm EST. Coding Level of Care Code New Pt Level 4 (28430) Diagnoses Left patella fracture S82.002A CPT Codes Fracture Care - Fracture Billing Code: Fracture Billing Code ([id number])
== END 2024-07-15 13:56 | disposition home or self-care (01) ==
PROVIDERS: PCP Internal Medicine; Visit Provider Physician Assistant
DX: S82.002A Unspecified fracture of left patella, initial encounter for closed fracture (principal)
CPT/HCPCS: 99204; 99214

== ENCOUNTER → 2024-07-15 12:51 | Outpatient (BNVA) | payer MEDICARE, SELFPAY | PROVIDERS: PCP Internal Medicine; Visit Provider Physician Assistant | DX: S82.002A Unspecified fracture of left patella, initial encounter for closed fracture (principal); W01.0XXA Fall on same level from slipping, tripping and stumbling without subsequent striking against object, initial encounter; Y93.9 Activity, unspecified; Y92.9 Unspecified place or not applicable; Y99.9 Unspecified external cause status | CPT/HCPCS: 99202 ==

== ENCOUNTER 2024-08-08 12:35 | Outpatient (AMB) | payer MEDICARE, SELFPAY ==
--- NOTE | 2024-08-08 13:11 | MHC.OFFVIS ---
Intake Visit Reasons: OV - left patellar fx, DOI 07/10/24 Intake Note: Víctor is a 78 year old male who presents today for a evaluation of his left patella fx, DOI 07/10/24. Patient reports he is feeling better today. No pain or discomfort at this time. Allergies No Known Allergies [No Known Allergies*] Allergy (Verified 08/08/24 13:12) HPI HPI OV - left patellar fx, DOI 07/10/24: Details: 78-year-old male who presents in the office today for a follow up of left patellar fracture status post tripped over his cat and had a fall on his left knee, which occurred on 07/10/24. I last saw the patient in the office on 07/15/24, when the patient reported improved left knee pain and edema and mentioned difficulty ambulating the stairs. He was placed into a playmaker knee brace and instructed not to bend his left knee past 45 degrees. He was educated about the future risk of fracture or displacement. He presents today without his knee brace. He reports that he is doing well with no concerns. He reports no pain. He is not following the ROM restrictions that were previously discussed at his last visit. [facility] Medical History Heart murmur Vitamin D deficiency Dyslipidemia (atherosclerosis) Colonoscopy refused Tobacco use disorder Hemochromatosis carrier Mass in neck Carotid bruit History of smoking Aortic valve calcification Chronic obstructive pulmonary disease, unspecified Shortness of breath on exertion Surgical History Mass in neck Hx of tonsillectomy Family History Father History of emphysema Mother HTN (hypertension) Brother No problems noted. Brother No problems noted. Sister No problems noted. Sister No problems noted. Daughter No problems noted. Social History Housing: House Alcohol intake: current Alcohol intake frequency: does not drink Patient Tobacco Use Status: Former Tobacco user Tobacco use type: Cigarette Years Smoked: 20 +/- e-Cigarette/Vaping Use: Never Used Second Hand Smoke Exposure: Yes service: No Current occupational status: retired Cognitive needs: No Hearing needs: No Vision needs: Yes (reading glasses) Review of Systems Const All systems reviewed & are unremarkable except as noted in HPI and below Physical Exam Const General: cooperative, healthy appearing and no acute distress Resp Effort & Inspection: normal respiratory effort and able to speak in complete sentences Cardio Rate: regular rate Peripheral pulses: Peripheral pulses 2+ throughout GI Palpation (GI): Soft to palpation Skin Lesions: no lesions Rashes: no rashes Extrem Other: Left knee: Normal to inspection. No ecchymosis, erythema, or joint effusion. No tenderness to palpation along the medial or lateral joint lines. No tenderness to palpation over the distal pole of the patella at the fracture site. Full knee extension and flexion. NVI. Assessment & Plan Assessment & Plan (1) Left patella fracture: Code(s): S82.002A - Unspecified fracture of left patella, initial encounter for closed fracture Category: Medical Plan Mr. Jaramillo is a 78-year-old male who presents in the office today for a follow-up of left patellar fracture status post tripped over his cat and had a fall on his left knee, which occurred on 07/10/24. I last saw the patient in the office on 07/15/24, when the patient reported improved left knee pain and edema and mentioned difficulty ambulating the stairs. He was placed into a playmaker knee brace and instructed not to bend his left knee past 45 degrees. He was reviewed about the future risk of fracture or displacement. He presents today without his knee brace. He reports that he is doing well with no concerns. He reports no pain. He is not following the ROM restrictions that were previously discussed at his last visit. The patient is non-compliant with brace and has been performing activities to tolerance, including kneeling and washing the floor while on his knees. He mentions having minimal pain and is going to progress with his activities as tolerated. Follow-up will be PRN, or sooner if needed. X-rays of the left knee, which were obtained while in the office today and were reviewed by me, Meg Funk PA-C, revealed: Routine healing of the left patellar fracture. Orders: Orders XR knee LT 2V Today M25.569 - Pain in unspecified knee Patient Instructions: Scribed by Tali Billings medical record clerk, for Meg Funk PA-C on 08/08/24 at 1:22 pm EST. Coding Level of Care Code Global (12487) Diagnoses Left patella fracture S82.002A
== END 2024-08-08 13:30 | disposition home or self-care (01) ==
PROVIDERS: PCP Internal Medicine; Visit Provider Physician Assistant
DX: S82.002D Unspecified fracture of left patella, subsequent encounter for closed fracture with routine healing (principal)
CPT/HCPCS: 99212

== ENCOUNTER 2024-08-08 12:37 | Outpatient (REF) | payer MEDICARE, SELFPAY | END 2024-08-08 12:38 | disposition home or self-care (01) | LOC: HO.HOSX 12:37 | PROVIDERS: Visit Provider Physician Assistant | DX: M25.562 Pain in left knee (principal); S82.002A Unspecified fracture of left patella, initial encounter for closed fracture | CPT/HCPCS: 73560; 99212 ==

== ENCOUNTER 2024-10-25 09:20 | Outpatient (REF) | payer MEDICARE, SELFPAY ==
[2024-10-25 10:43] LABS: MANUAL DIFF FLAG NO
[2024-10-25 10:50] LABS: Basophils Percent Auto 0.4 % (0-2); Eosinophils Absolute Auto 0.1 X10*3/uL (0.0-0.4); Eosinophils Percent Auto 2.3 % (0-4); Hemoglobin 14.7 g/dl (14.0-18.0); Imm Gran Abs Auto 0.02 X10*3/uL (0.00-0.03); Imm Gran Pct Auto 0.4 % (0.0-0.4); Lymphocytes Absolute Auto 2.3 X10*3/uL (1.2-4.9); Lymphocytes Percent Auto 42.1 % (20-40); Mean Corpuscular HGB Conc 33.4 g/dl (31.0-36.0); Mean Corpuscular Hemoglobin 32.4 pg (27.0-33.0); Mean Corpuscular Volume 96.9 fL (80.0-98.0); Mean Platelet Volume 10.8 fL (9.4-12.4); Monocytes Absolute Auto 0.5 X10*3/uL (0.1-1.2); Neutrophils Absolute Auto 2.5 x10*3/uL (2.0-8.3); Neutrophils Percent Auto 45.8 % (45-73); Platelet Count 183 X10*3/uL (160-400); Red Blood Count 4.54 X10*6/uL (4.60-5.80); Red Cell Distribution Width 12.8 % (11.0-16.0); White Blood Count 5.5 X10*3/uL (4.8-10.8)
[2024-10-25 11:00] LABS: Estimated Average Glucose 114 mg/dL; Hemoglobin A1C 143.5916 umol/L; Hemoglobin A1c % 5.6 % (<6.0); Total Hemoglobin (HGBA1C) 3840.4945 umol/L
[2024-10-25 12:09] LABS: Alanine Aminotransferase 20 U/L (0-40); Albumin Level 4.1 g/dL (3.5-5.0); Alkaline Phosphatase 58 U/L (39-117); Anion Gap 11 (12-20); Aspartate Amino Transferase 26 U/L (5-37); Bilirubin Total 0.7 mg/dL (0.0-1.0); Blood Urea Nitrogen 10 mg/dL (9-16); Calcium 9.4 mg/dL (8.4-10.2); Carbon Dioxide 28 mmol/L (22-29); Chloride 105 mmol/L (96-108); Cholesterol 162 mg/dL (<200); Estimated Glomerular Filt Rate > 60; Glucose Fasting 109 mg/dL (60-99); HDL Cholesterol 69 mg/dL (>40); LDL Cholesterol Calculated 84 mg/dL (<100); Potassium 4.2 mmol/L (3.3-5.1); Sodium 140 mmol/L (135-145); Total Protein 7.1 g/dL (6.5-8.0); Triglycerides 46 mg/dL (<150)
[2024-10-25 12:49] LABS: PSA,Total (Free>4and<10) 6.66 ng/mL (0.00-4.00)
[2024-10-28 11:18] LABS: Free Prostate Spec Ag 0.5 ng/mL; Percent Free Prostate Spec Ag 6 % (calc) (>25); Prostate Specific Ag Total 7.7 ng/mL (< OR = 4.0)
== END 2024-10-25 09:21 | disposition home or self-care (01) ==
LOC: HO.HMGCLDS 09:20
PROVIDERS: PCP Internal Medicine; Referring Provider Urology; Visit Provider Internal Medicine
DX: D64.9 Anemia, unspecified (principal); E78.00 Pure hypercholesterolemia, unspecified; R73.01 Impaired fasting glucose; R97.20 Elevated prostate specific antigen [PSA]; Z12.5 Encounter for screening for malignant neoplasm of prostate
CPT/HCPCS: 36415; 80053; 80061; 83036; 84153; 84154; 85025

== ENCOUNTER → 2024-11-01 08:42 | Outpatient (BNVA) | payer MEDICARE, SELFPAY | PROVIDERS: PCP Internal Medicine; Visit Provider Internal Medicine | DX: E78.00 Pure hypercholesterolemia, unspecified (principal); R03.0 Elevated blood-pressure reading, without diagnosis of hypertension; J44.9 Chronic obstructive pulmonary disease, unspecified; R01.1 Cardiac murmur, unspecified; R73.01 Impaired fasting glucose; E55.9 Vitamin D deficiency, unspecified; N40.1 Benign prostatic hyperplasia with lower urinary tract symptoms; N13.8 Other obstructive and reflux uropathy; R97.20 Elevated prostate specific antigen [PSA] | CPT/HCPCS: 96127; 99212 ==

== ENCOUNTER → 2024-11-01 08:42 | Outpatient (AMB) | payer MEDICARE, SELFPAY ==
--- NOTE | 2024-11-01 09:07 | A.OFFPC_ITS ---
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 Accompanied by: Self / Same As Patient Allergies No Known Allergies [No Known Allergies*] Allergy (Verified 11/01/24 09:36) Medication List - Last Reconciled 11/01/24 by Aaln Osman MD atorvastatin 40 mg PO BEDTIME 90 days cholecalciferol (vitamin D3) 50 mcg PO DAILY 90 days finasteride 5 mg PO DAILY 90 days naproxen 500 mg PO Q12H PRN Tobacco use date assessed: 11/01/24 Fall risk assessment: No Falls in past year Last assessed Fall Risk: 11/01/24 Dental Screening Dental Screen Date: 11/01/24 Did you have a dental visit in the last 12 months?: No Did you have a dental problem in the last 6 months where you did not have access to dental care?: No Was dental information given to patient?: No HPI hyperlipidemia, BPH HPI Details Patient comes in today for his follow up visit States that he feels okay He denies any headaches or dizziness Denies any chest pains, no SOB No nausea/vomiting, no abdominal pain No change in bowel habits noted He had his follow up labs done last week - to discuss his results [facility] Medical History Heart murmur Vitamin D deficiency Dyslipidemia (atherosclerosis) Colonoscopy refused Tobacco use disorder Hemochromatosis carrier Mass in neck Carotid bruit History of smoking Aortic valve calcification Chronic obstructive pulmonary disease, unspecified Shortness of breath on exertion Surgical History Mass in neck Hx of tonsillectomy Family History Father History of emphysema Mother HTN (hypertension) Brother No problems noted. Brother No problems noted. Sister No problems noted. Sister No problems noted. Daughter No problems noted. Social History Housing: House Alcohol intake: current Alcohol intake frequency: does not drink Patient Tobacco Use Status: Former Tobacco user Tobacco use type: Cigarette Years Smoked: 20 +/- e-Cigarette/Vaping Use: Never Used Second Hand Smoke Exposure: Yes service: No Current occupational status: retired Cognitive needs: No Hearing needs: No Vision needs: Yes (reading glasses) Questionnaire PHQ-9 Over the last 2 weeks, how often have you been bothered by any of the following problems? 1. Little interest or pleasure in doing things: not at all 2. Feeling down, depressed, or hopeless: not at all 3. Trouble falling or staying asleep, or sleeping too much: not at all 4. Feeling tired or having little energy: not at all 5. Poor appetite or overeating: not at all 6. Feeling bad about yourself - or that you are a failure or have let yourself or your family down: not at all 7. Trouble concentrating on things, such as reading the newspaper or watching television: not at all 8. Moving or speaking so slowly that other people could have noticed. Or the opposite - being so fidgety or restless that you have been moving around a lot more than usual: not at all 9. Thoughts that you would be better off or of hurting yourself in some wa y: not at all Total score: 0 Depression Screening Interpretation: Negative Depression Screening Done: Yes 29544 - PHQ-9 Billing: Yes Source: Developed by Drs. Rogelio Salomon, Sarah Saba, Raghu Guevara and colleagues, with an educational john from [employer]. Thrive Questionnaire Date Thrive assessed: 11/01/23 I am a: Patient What is your living situation today?: I have a steady place to live Within the past 12 months, did the food you bought not last and you didn't have the money to get more?: Never true Within the past 12 months, did you worry whether your food would run out before you got money to buy more?: Never true Do you have trouble paying for medicines?: No Do you have trouble getting transportation to medical appointments?: No Do you have trouble paying your heating and electricity bill?: No Do you have trouble taking care of your child, family member or friend?: No Do you have trouble with day-to-day activities such as bathing, preparing meals, shopping, managing finances, etc.?: No Are you currently unemployed and looking for a job?: No Are you interested in more education?: No Please select the resources that you would like help with: None Currently or been in a relationship where the following occur: No concerns reported THRIVE Score: 0 AUDIT C Alcohol Use Questionnaire (AUDIT-C) 1. How often do you have a drink containing alcohol?: Never 3. How often do you have six or more drinks on one occasion?: Never Total Score: 0 Score Reviewed/Action Taken: Yes LEELEE-7 AMB Questionnaire LEELEE-7 Date LEELEE - 7 assessed: 11/01/24 Feeling nervous, anxious, or on edge: 0 = Not at all Not being able to stop or control worryin = Not at all Worrying too much about different things: 0 = Not at all Trouble relaxin = Not at all Being so restless that it is hard to sit still: 0 = Not at all Becoming easily annoyed or irritable: 0 = Not at all Feeling afraid as if something awful might happen: 0 = Not at all Total LEELEE-7 score (0-4 normal; 5-9 mild; 10-14 moderate; 15-21 severe): 0 Source: Developed by Drs. Rogelio Salomon, Sarah Saba, Raghu Guevara and colleagues, with an educational john from [employer]. Review of Systems Const Denies chills, Denies fatigue, Denies fever(s) and Denies headache(s) ENT Denies dysphagia, Denies dizziness, Denies otalgia, Denies headache(s), Denies neck pain, Denies odynophagia and Denies sore throat Card Denies chest pain, Denies palpitations and Denies dyspnea Resp Denies chest congestion, Denies cough and Denies dyspnea GI Denies abdominal pain, Denies constipation, Denies dysphagia, Denies heartburn, Denies diarrhea, Denies nausea, Denies odynophagia and Denies vomiting Denies dysuria, Denies nocturia and Denies urinary frequency Musc Denies back pain and Denies neck pain Skin/Breast Denies rash Neuro Denies dizziness and Denies headache(s) Endo Denies fatigue and Denies palpitations Physical exam (Primary Care) Vital Signs: Last Vital Signs Pulse 66 11/01/24 09:07 BP 144/86 H 11/01/24 09:07 Pulse Ox 93 11/01/24 09:07 Oxygen Delivery Method Room Air 11/01/24 09:07 BMI result Body Mass Index 24.2 Tobacco/Smoking Status: Tobacco use Status Tobacco use date assessed 11/01/24 11/01/24 09:15 Patient Tobacco Use Status Former Tobacco user 11/01/24 09:15 Tobacco use type Cigarette 11/01/24 09:15 e-Cigarette/Vaping Use Never Used 11/01/24 09:15 PHQ-9: PHQ-9 Score PHQ-9: Total score 0 11/01/24 09:40 Depression Screening Interpretation: Negative Thrive Assessment: Date of Thrive Assessment Date Thrive assessed 11/01/23 11/01/24 09:15 Currently or been in a relationship where the following occur: No concerns reported Const General: no acute distress and alert HENMT Ears: TM's normal bilaterally and EAC's normal Throat: Yes posterior oropharynx normal and Yes tonsils normal (no TP congestion) Neck Neck: Yes supple and No lymphadenopathy Thyroid: Thyroid normal Resp Auscultation: clear to auscultation bilaterally, no rales and no wheezes Cardio Rate: regular rate Rhythm: regular rhythm Heart sounds: Murmur heart sound present systolic soft, II/, at the apex and at the left sternal border GI Palpation (GI): Soft to palpation and nontender Auscultation: normal bowel sounds General: Yes no CVA tenderness Back/Spine/Pelvis Back: no CVA tenderness Thoracic/Lumbar Spine: No lumbar spinal tenderness Skin Rashes: no rashes Extrem General: Yes no clubbing, cyanosis or edema Results Reviewed Results Reviewed: Laboratory Tests 10/25/24 10/25/24 09:29 12:49 WBC 5.5 Hgb 14.7 Hct 44.0 Plt Count 183 Sodium 140 Potassium 4.2 Creatinine 0.71 Estimated GFR > 60 Fasting Glucose 109 H Hemoglobin A1c % 5.6 Calcium 9.4 AST 26 ALT 20 Triglycerides 46 Cholesterol 162 LDL Cholesterol, Calc 84 HDL Cholesterol 69 Free PSA 0.5 % Free PSA 6 L Total PSA 6.66 H Total PSA (off-site) 7.7 H Coding Level of Care Code Est Pt Level 4 (75462) Diagnoses Pure hypercholesterolemia E78.00 Elevated blood pressure reading R03.0 Chronic obstructive pulmonary disease, unspecified COPD type J44.9 COPD type: unspecified COPD Cardiac murmur R01.1 Impaired fasting glucose R73.01 Vitamin D deficiency E55.9 BPH w urinary obs/LUTS N40.1; N13.8 Elevated PSA R97.20 Additional Codes PHQ-9 - 48545 - PHQ-9 Billing: Yes ([id number]) Assessment & Plan Assessment & Plan (1) Pure hypercholesterolemia: Code(s): E78.00 - Pure hypercholesterolemia, unspecified Category: Medical Plan: Results of his labs done last week reviewed and discussed with patient Reinforced low cholesterol diet Continue Atorvastatin 40 mg QD Will have patient recheck his labs and fasting lipids in 6 months for follow up (2) Elevated blood pressure reading: Code(s): R03.0 - Elevated blood-pressure reading, without diagnosis of hypertension Category: Medical Plan: Reinforced low sodium diet Patient's BP today is again acceptable at 144/86 - he is advised again that his systolic BP should at least be at around 130 to 140 mm or less for his age Have reminded patient to continue monitoring his blood pressure regularly (3) Chronic obstructive pulmonary disease, unspecified: Code(s): J44.9 - Chronic obstructive pulmonary disease, unspecified Category: Medical Qualifiers: COPD type: unspecified COPD Qualified Code(s): J44.9 - Chronic obstructive pulmonary disease, unspecified Plan: Patient is an ex-smoker and chest x-rays done in the past have showed (+) emphysematous changes in the lungs Patient reports that he is currently still asymptomatic and has no issues with his breathing other than mild ROMERO at times He has been seen and evaluated by cardiology a couple of years ago and was advised that he has no significant cardiac issues or concerns (4) Cardiac murmur: Code(s): R01.1 - Cardiac murmur, unspecified Category: Medical Plan: Echocardiogram done in 2014 revealed (+) trace MR and trace TR, which are likely the source of his current grade 2/6 soft systolic murmur heard on auscultation His EF and overall LV systolic function were normal at the time As patient is currently active and states that he's had no acute issues with SOB and is fairly independent with all daily activities, no further work ups are indicated at this time (5) Impaired fasting glucose: Code(s): R73.01 - Impaired fasting glucose Category: Medical Plan: His fasting glucose is again slightly elevated at 109 mg/dl on his recent labs but his HgbA1c is normal at 5.6% Reinforced low calorie/low carb diet (6) Vitamin D deficiency: Code(s): E55.9 - Vitamin D deficiency, unspecified Category: Medical Plan: Continue Vitamin D3 2000 units QD (7) BPH w urinary obs/LUTS: Code(s): N40.1 - Benign prostatic hyperplasia with lower urinary tract symptoms; N13.8 - Other obstructive and reflux uropathy Category: Medical Plan: He is currently asymptomatic fron urology standpoint Continue Finasteride 5 mg QD Follow up with urology (Dr. Heck) as scheduled (8) Elevated PSA: Code(s): R97.20 - Elevated prostate specific antigen [PSA] Category: Medical Plan: His PSA level is still elevated on his recent labs but free PSA is still low Follow up with urology for continuing surveillance - will have his PSA rechecked in 6 months Plan Follow up in 6 months Orders: Orders Comprehensive [place]. Panel Fast 6 Months E78.00 - Pure hypercholesterolemia, unspecified Lipid Panel 6 Months E78.00 - Pure hypercholesterolemia, unspecified Vitamin D 25-OH Total 6 Months E55.9 - Vitamin D deficiency, unspecified Complete Blood Count Auto Diff 6 Months D64.9 - Anemia, unspecified TSH reflex Free T4 6 Months E78.00 - Pure hypercholesterolemia, unspecified UA CC w/rflx Micro + Cult 6 Months R30.0 - Dysuria
== END | disposition home or self-care (01) ==
PROVIDERS: PCP Internal Medicine; Visit Provider Internal Medicine

== ENCOUNTER 2025-04-25 08:33 | Outpatient (REF) | payer MEDICARE, SELFPAY ==
[2025-04-25 10:55] LABS: MANUAL DIFF FLAG NO
[2025-04-25 11:05] LABS: Hematocrit 43.3 % (42.0-52.0); Hemoglobin 14.6 g/dl (14.0-18.0); Imm Gran Abs Auto 0.02 X10*3/uL (0.00-0.03); Imm Gran Pct Auto 0.4 % (0.0-0.4); Lymphocytes Absolute Auto 2.6 X10*3/uL (1.2-4.9); Mean Corpuscular HGB Conc 33.7 g/dl (31.0-36.0); Mean Corpuscular Hemoglobin 32.8 pg (27.0-33.0); Mean Corpuscular Volume 97.3 fL (80.0-98.0); NRBC Abs Auto 0.000 X10*3/uL (0.0-0.012); NRBC Pct Auto 0.0 /100WBC (0.0-0.2); Platelet Count 202 X10*3/uL (160-400); Red Blood Count 4.45 X10*6/uL (4.60-5.80); White Blood Count 5.6 X10*3/uL (4.8-10.8)
[2025-04-25 11:31] LABS: Alanine Aminotransferase 19 U/L (0-40); Albumin Level 4.3 g/dL (3.5-5.0); Alkaline Phosphatase 56 U/L (39-117); Anion Gap 11 (12-20); Aspartate Amino Transferase 27 U/L (5-37); Blood Urea Nitrogen 10 mg/dL (9-16); Calcium 8.6 mg/dL (8.4-10.2); Carbon Dioxide 30 mmol/L (22-29); Chloride 104 mmol/L (96-108); Cholesterol 167 mg/dL (<200); Estimated Glomerular Filt Rate > 60; HDL Cholesterol 67 mg/dL (>40); Potassium 4.1 mmol/L (3.3-5.1); Sodium 141 mmol/L (135-145); Total Protein 6.9 g/dL (6.5-8.0); Triglycerides 52 mg/dL (<150)
== END 2025-04-25 08:34 | disposition home or self-care (01) ==
LOC: HO.HMGCLDS 08:33
PROVIDERS: PCP Internal Medicine; Visit Provider Internal Medicine
DX: E78.00 Pure hypercholesterolemia, unspecified (principal); D64.9 Anemia, unspecified; E55.9 Vitamin D deficiency, unspecified
CPT/HCPCS: 36415; 80053; 80061; 82306; 84443; 85025

== ENCOUNTER 2025-05-01 09:16 | Outpatient (AMB) | payer MEDICARE, SELFPAY ==
[2025-05-01 09:23] VITALS: BP 132/84; PULSE 76; O2SAT 93; BMI 24.7
--- NOTE | 2025-05-01 09:23 | MHC.PC.OV ---
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: No Accompanied by: Self / Same As Patient Allergies No Known Allergies (No Known Allergies*) Allergy (Verified 05/01/25 09:45) Medication List - Last Reconciled 05/01/25 by Alan Osman MD atorvastatin 40 mg PO BEDTIME 90 days cholecalciferol (vitamin D3) 50 mcg PO DAILY 90 days finasteride 5 mg PO DAILY 90 days naproxen 500 mg PO Q12H PRN Tobacco use date assessed: 05/01/25 Fall risk assessment: No Falls in past year Last assessed Fall Risk: 05/01/25 Dental Screening Dental Screen Date: 05/01/25 Did you have a dental visit in the last 12 months?: No Did you have a dental problem in the last 6 months where you did not have access to dental care?: No Was dental information given to patient?: No HPI 6 Months f/u - see comments HPI Details Patient comes in today for his follow up visit States that he feels okay He denies any headaches or dizziness Denies any chest pains, no SOB No nausea/vomiting, no abdominal pain No change in bowel habits noted He had his follow up labs done last week - to discuss his results [facility] Medical History Heart murmur Vitamin D deficiency Dyslipidemia (atherosclerosis) Colonoscopy refused Tobacco use disorder Hemochromatosis carrier Mass in neck Carotid bruit History of smoking Aortic valve calcification Chronic obstructive pulmonary disease, unspecified Shortness of breath on exertion Surgical History Mass in neck Hx of tonsillectomy Family History Father History of emphysema Mother HTN (hypertension) Brother No problems noted. Brother No problems noted. Sister No problems noted. Sister No problems noted. Daughter No problems noted. Social History (Reviewed 05/01/25 @ 09:24 by MUKUND Edward Housing: House Alcohol intake: current Alcohol intake frequency: does not drink Patient Tobacco Use Status: Former Tobacco user Tobacco use type: Cigarette Years Smoked: 20 +/- e-Cigarette/Vaping Use: Never Used Second Hand Smoke Exposure: Yes service: No Current occupational status: retired Cognitive needs: No Hearing needs: No Vision needs: Yes (reading glasses) Questionnaire PHQ-9 Over the last 2 weeks, how often have you been bothered by any of the following problems? 1. Little interest or pleasure in doing things: not at all 2. Feeling down, depressed, or hopeless: not at all 3. Trouble falling or staying asleep, or sleeping too much: not at all 4. Feeling tired or having little energy: not at all 5. Poor appetite or overeating: not at all 6. Feeling bad about yourself - or that you are a failure or have let yourself or your family down: not at all 7. Trouble concentrating on things, such as reading the newspaper or watching television: not at all 8. Moving or speaking so slowly that other people could have noticed. Or the opposite - being so fidgety or restless that you have been moving around a lot more than usual: not at all 9. Thoughts that you would be better off or of hurting yourself in some way: not at all Total score: 0 Depression Screening Interpretation: Negative Depression Screening Done: Yes 09574 - PHQ-9 Billing: Yes Source: Developed by Drs. Rogelio Salomon, Sarah Saba, Raghu Guevara and colleagues, with an educational john from [employer]. Thrive Questionnaire Date Thrive assessed: 05/01/25 I am a: Patient What is your living situation today?: I have a steady place to live Within the past 12 months, did the food you bought not last and you didn't have the money to get more?: Never true Within the past 12 months, did you worry whether your food would run out before you got money to buy more?: Never true Do you have trouble paying for medicines?: No Do you have trouble getting transportation to medical appointments?: No Do you have trouble paying your heating and electricity bill?: No Do you have trouble taking care of your child, family member or friend?: No Do you have trouble with day-to-day activities such as bathing, preparing meals, shopping, managing finances, etc.?: No Are you currently unemployed and looking for a job?: No Are you interested in more education?: No Please select the resources that you would like help with: None Currently or been in a relationship where the following occur: No concerns reported THRIVE Score: 0 AUDIT C Alcohol Use Questionnaire (AUDIT-C) 1. How often do you have a drink containing alcohol?: Never 3. How often do you have six or more drinks on one occasion?: Never Total Score: 0 Score Reviewed/Action Taken: Yes LEELEE-7 AMB Questionnaire LEELEE-7 Date LEELEE - 7 assessed: 05/01/25 Feeling nervous, anxious, or on edge: 0 = Not at all Not being able to stop or control worryin = Not at all Worrying too much about different things: 0 = Not at all Trouble relaxin = Not at all Being so restless that it is hard to sit still: 0 = Not at all Becoming easily annoyed or irritable: 0 = Not at all Feeling afraid as if something awful might happen: 0 = Not at all Total LEELEE-7 score (0-4 normal; 5-9 mild; 10-14 moderate; 15-21 severe): 0 Source: Developed by Drs. Rogelio Salomon, Sarah Saba, Raghu Guevara and colleagues, with an educational john from [employer]. Review of Systems Const Denies chills, Denies fatigue, Denies fever(s) and Denies headache(s) ENT Denies dysphagia, Denies dizziness, Denies otalgia, Denies headache(s), Denies neck pain, Denies odynophagia and Denies sore throat Card Denies chest pain, Denies palpitations and Denies dyspnea Resp Denies chest congestion, Denies cough and Denies dyspnea GI Denies abdominal pain, Denies constipation, Denies dysphagia, Denies heartburn, Denies diarrhea, Denies nausea, Denies odynophagia and Denies vomiting Denies difficulty urinating, Denies dysuria, Denies nocturia and Denies urinary frequency Musc Denies back pain and Denies neck pain Skin/Breast Denies rash Neuro Denies dizziness and Denies headache(s) Endo Denies fatigue and Denies palpitations Physical exam (Primary Care) Vital Signs: Last Vital Signs Pulse 76 05/01/25 09:23 BP 132/84 05/01/25 09:23 Pulse Ox 93 05/01/25 09:23 Oxygen Delivery Method Room Air 05/01/25 09:23 BMI result Body Mass Index 24.7 Tobacco/Smoking Status: Tobacco use Status Tobacco use date assessed 05/01/25 05/01/25 09:29 Patient Tobacco Use Status Former Tobacco user 05/01/25 09:29 Tobacco use type Cigarette 05/01/25 09:29 e-Cigarette/Vaping Use Never Used 05/01/25 09:29 PHQ-9: PHQ-9 Score PHQ-9: Total score 0 05/01/25 09:49 Depression Screening Interpretation: Negative Thrive Assessment: Date of Thrive Assessment Date Thrive assessed 05/01/25 05/01/25 09:29 Currently or been in a relationship where the following occur: No concerns reported Const General: no acute distress and alert HENMT Ears: TM's normal bilaterally and EAC's normal Throat: Yes posterior oropharynx normal and Yes tonsils normal (no TP congestion) Neck Neck: Yes supple and No lymphadenopathy Thyroid: Thyroid normal Resp Auscultation: clear to auscultation bilaterally, no rales and no wheezes Cardio Rate: regular rate Rhythm: regular rhythm Heart sounds: Murmur heart sound present systolic soft, II/, at the apex and at the left sternal border GI Palpation (GI): Soft to palpation and nontender Auscultation: normal bowel sounds General: Yes no CVA tenderness Back/Spine/Pelvis Back: no CVA tenderness Thoracic/Lumbar Spine: No lumbar spinal tenderness Skin Rashes: no rashes Extrem General: Yes no clubbing, cyanosis or edema Results Reviewed Results Reviewed: Laboratory Tests 04/25/25 04/25/25 08:41 08:44 WBC 5.6 Hgb 14.6 Hct 43.3 Plt Count 202 Sodium 141 Potassium 4.1 Creatinine 0.77 Estimated GFR > 60 Fasting Glucose 110 H Calcium 8.6 D AST 27 ALT 19 Triglycerides 52 Cholesterol 167 LDL Cholesterol, Calc 90 HDL Cholesterol 67 25-OH Vitamin D Total 70.7 TSH 1.39 Coding Level of Care Code Est Pt Level 4 (01441) Diagnoses Pure hypercholesterolemia E78.00 Elevated blood pressure reading R03.0 Chronic obstructive pulmonary disease, unspecified COPD type J44.9 COPD type: unspecified COPD Cardiac murmur R01.1 Impaired fasting glucose R73.01 Vitamin D deficiency E55.9 BPH w urinary obs/LUTS N40.1; N13.8 Elevated PSA R97.20 Additional Codes PHQ-9 - 02894 - PHQ-9 Billing: Yes ([id number]) Assessment & Plan Assessment & Plan (1) Pure hypercholesterolemia: Code(s): E78.00 - Pure hypercholesterolemia, unspecified Category: Medical Plan: Results of his labs done last week reviewed and discussed with patient Reinforced low cholesterol diet Continue Atorvastatin 40 mg QD Will have patient recheck his labs and fasting lipids in 6 months for follow up (2) Elevated blood pressure reading: Code(s): R03.0 - Elevated blood-pressure reading, without diagnosis of hypertension Category: Medical Plan: Reinforced low sodium diet He is still on NO Rx for his blood pressure Patient's BP today is again acceptable at 132/84 Have reminded patient to continue monitoring his blood pressure regularly (3) Chronic obstructive pulmonary disease, unspecified: Code(s): J44.9 - Chronic obstructive pulmonary disease, unspecified Category: Medical Qualifiers: COPD type: unspecified COPD Qualified Code(s): J44.9 - Chronic obstructive pulmonary disease, unspecified Plan: Patient is an ex-smoker and chest x-rays done in the past have showed (+) emphysematous changes in the lungs Patient reports that he currently remains asymptomatic and has no issues with his breathing other than mild ROMERO at times He has been seen and evaluated by cardiology a couple of years ago and was advised that he has no significant cardiac issues or concerns (4) Cardiac murmur: Code(s): R01.1 - Cardiac murmur, unspecified Category: Medical Plan: Echocardiogram done in 2015 revealed (+) trace MR and trace TR, which are likely the source of his current grade 2/6 soft systolic murmur heard on auscultation His EF and overall LV systolic function were normal at the time As patient is currently active and states that he's had no acute issues with SOB and is fairly independent with all daily activities, no further work ups are indicated at this time (5) Impaired fasting glucose: Code(s): R73.01 - Impaired fasting glucose Category: Medical Plan: His fasting glucose is again slightly elevated at 110 mg/dl on his recent labs; his HgbA1c was normal at 5.6% when checked previously Reinforced low calorie/low carb diet (6) Vitamin D deficiency: Code(s): E55.9 - Vitamin D deficiency, unspecified Category: Medical Plan: Continue Vitamin D3 2000 units QD (7) BPH w urinary obs/LUTS: Code(s): N40.1 - Benign prostatic hyperplasia with lower urinary tract symptoms; N13.8 - Other obstructive and reflux uropathy Category: Medical Plan: He is currently asymptomatic fron urology standpoint Continue Finasteride 5 mg QD Follow up with urology (Dr. Heck) as scheduled (8) Elevated PSA: Code(s): R97.20 - Elevated prostate specific antigen [PSA] Category: Medical Plan: His PSA level was still elevated but free PSA was still low when last checked Follow up with urology for continuing surveillance Plan Follow up in 6 months Orders: Orders Vitamin D 25-OH Total 6 Months E55.9 - Vitamin D deficiency, unspecified Complete Blood Count Auto Diff 6 Months D64.9 - Anemia, unspecified Comprehensive [place]. Panel Fast 6 Months E78.00 - Pure hypercholesterolemia, unspecified Lipid Panel 6 Months E78.00 - Pure hypercholesterolemia, unspecified TSH reflex Free T4 6 Months E78.00 - Pure hypercholesterolemia, unspecified UA CC w/rflx Micro + Cult 6 Months R30.0 - Dysuria Vitamin B12 and Folate 6 Months E53.8 - Deficiency of other specified B group vitamins Hemoglobin A1c 6 Months R73.01 - Impaired fasting glucose
== END 2025-05-01 09:58 | disposition home or self-care (01) ==
LOC: HO.HMCH 09:17
PROVIDERS: PCP Internal Medicine; Visit Provider Internal Medicine
DX: E78.00 Pure hypercholesterolemia, unspecified (principal); R03.0 Elevated blood-pressure reading, without diagnosis of hypertension; J44.9 Chronic obstructive pulmonary disease, unspecified; R01.1 Cardiac murmur, unspecified; R73.01 Impaired fasting glucose; E55.9 Vitamin D deficiency, unspecified; N40.1 Benign prostatic hyperplasia with lower urinary tract symptoms; N13.8 Other obstructive and reflux uropathy; R97.20 Elevated prostate specific antigen [PSA]

== ENCOUNTER → 2025-05-01 09:16 | Outpatient (BNVA) | payer MEDICARE, SELFPAY | PROVIDERS: PCP Internal Medicine; Visit Provider Internal Medicine | DX: E78.00 Pure hypercholesterolemia, unspecified (principal); R03.0 Elevated blood-pressure reading, without diagnosis of hypertension; J44.9 Chronic obstructive pulmonary disease, unspecified; R01.1 Cardiac murmur, unspecified; R73.01 Impaired fasting glucose; E55.9 Vitamin D deficiency, unspecified; N40.1 Benign prostatic hyperplasia with lower urinary tract symptoms; N13.8 Other obstructive and reflux uropathy; R97.20 Elevated prostate specific antigen [PSA]; Z13.31 Encounter for screening for depression | CPT/HCPCS: 96127; 99212 ==